=== PATIENT | female | born 1995 | race Caucasian/White ===

== ENCOUNTER 2020-03-24 13:51 | Emergency (ER) | payer OTHER, SELFPAY ==
[2020-03-24 16:21] VITALS: BP 139/66; PULSE 91; RESP 16; TEMP 36.6; O2SAT 99; BMI 30.7
--- NOTE | 2020-03-24 16:41 | PC.NURSE ---
also c/o waking at night w/nausea and vomiting over past couple days, last vomited approx. 1300 today in addition to +discoloration on left breast not visualized by this rn
--- NOTE | 2020-03-24 17:01 | ED.GENADULT ---
HPI - General Adult General Chief complaint: Skin/Abscess/Foreign Body Stated complaint: RASH VOMITING Time Seen by Provider: 03/24/20 14:21 Source: patient Mode of arrival: ambulatory Limitations: no limitations History of Present Illness HPI narrative: 25 y/o healthy female presenting with minor red, dry rash under both of her eyes and along her hairline for the last 3 days. It is not painful or itchy. She also reports vomiting for the last 2 days as well, last at 1 pm today. She states it is worse in the morning. She reports mild epigastric pain when vomiting, none as present. She reports she may be . Does not know her LMP. Urinating is slightly painful w/ hotness but she said this is baseline for her. She has no fevers. No diarrhea. No sick contacts. MD complaint: vomiting & rash Onset (ago): day(s) (3) Location: face and abdomen Radiation: non-radiation Severity: mild Quality: aching Pain Consistency: intermittent and now resolved Relieving factors: none Exacerbating factors: other (vomiting) Associated symptoms: loss of appetite, nausea/vomiting and rash Treatments prior to arrival: none Related Data Previous Rx's Medication Instructions Recorded cefuroxime axetil 250 mg PO BID 7 Days #14 tab 03/24/20 ondansetron HCl [Zofran] 4 mg PO Q8H PRN #10 tab 03/24/20 Allergies Allergy/AdvReac Type Severity Reaction Status Date / Time No Known Allergies Allergy Unverified 10/25/19 17:20 Review of Systems Review of Systems: Constitutional: No Fever, No Chills ENT/Mouth: No sore throat, No Rhinorrhea, No Swallowing Difficulty Eyes: No Eye Pain, No Swelling, No Redness Cardiovascular: No Chest Pain, No SOB, No Orthopnea, No Edema Respiratory: No Cough, No Sputum, No Wheezing, No dyspnea Gastrointestinal: + Nausea, + Vomiting, No Diarrhea, + abdominal Pain Genitourinary: + Dysuria, No Urinary Frequency, No Hematuria Musculoskeletal: No joint pain, No Myalgias Skin: + Skin Lesions, + rash Neuro: No Weakness, No Numbness, No Dizziness, No Headache Psych: No Anxiety/Panic, No Depression Heme/Lymph: No Bruising, No Lymphadenopathy Endocrine: No Polyuria, No Polydipsia PMFSH Past Medical History Attestation statement: The following information was validated with the patient. Medical History No known health problems Social History Social History Smoked in Last 30 Days: No Use of substances other than those prescribed or required for medical reasons: No Advance Directives: No Advance Directives Information Provided: Yes Physical Exam Vital Signs: Vital Signs: Last Vital Signs Temp 98 F 03/24/20 16:21 Pulse 91 03/24/20 16:21 Resp 16 03/24/20 16:21 BP 139/66 03/24/20 16:21 Pulse Ox 99 03/24/20 16:21 Body Mass Index 30.7 Appearance: Alert. Oriented X3. No acute distress. Eyes: Pupils equal, round and reactive to light. ENT: Pharynx normal. Neck: Normal inspection. Neck supple. CVS: Normal heart rate and rhythm. Pulses normal. Respiratory: No respiratory distress. Breath sounds normal. Abdomen: Soft and nontender. +BS x4 Skin: Skin warm and dry. Normal skin color. Normal skin turgor. minor slightly erythematous dry rash patch below bilateral eyes. along hairline inflammed hair follicle Extremities: No lower extremity edema. Neuro: Oriented X 3. No motor deficit. No sensory deficit. Course Course Course Narrative: 25 y/o female presenting with vomiting x3 days and minor facial rash. Rash is consistent with mild folliculitis and dry patches could be due to eczema. Will check Upreg and basic labs. She is not nauseated here and she has no abdominal pain or tenderness. Reevaluation(s) Reevaluation #1: Labs are unremarkable. Urine is negative. UA consistent with UTI. No CVA tenderness, doubt pyelonephritis. No fever or leukocytosis. Will treat with PO ceftin and Zofran. Stable for d/c home. Instructed to return if symptoms worsen. Medical Decision Making Lab Data Result diagrams: 03/24/20 17:04 03/24/20 17:04 Labs: Lab Results 03/24/20 03/24/20 03/24/20 Range/Units 17:04 17:04 17:04 WBC 10.0 (4.8-10.8) X10*3/uL RBC 4.34 (4.20-5.50) X10*6/uL Hgb 12.3 (12.0-16.0) g/dl Hct 38.0 (37-47) % MCV 87.6 (80-98) fL MCH 28.3 (27.0-33.0) pg MCHC 32.4 (31.0-35.0) g/dl RDW 13.5 (11.0-16.0) % Plt Count 233 (160-400) X10*3/uL MPV 10.6 (9.4-12.3) fL Immature Gran % (Auto) 0.3 (0.0-0.4) % Neut % (Auto) 75.6 H (45-73) % Lymph % (Auto) 16.2 L (20-40) % [place] % (Auto) 6.4 (2-11) % Eos % (Auto) 1.1 (0-4) % Baso % (Auto) 0.4 (0-2) % Lymph # (Auto) 1.6 (1.2-4.9) X10*3/uL [place] # (Auto) 0.6 (0.1-1.2) X10*3/uL Eos # (Auto) 0.1 (0.0-0.4) X10*3/uL Baso # (Auto) 0.0 (0.0-0.2) X10*3/uL Abs Immat Gran (auto) 0.03 (0.00-0.03) X10*3/uL Absolute Neuts (auto) 7.6 (2.0-8.3) X10*3/uL Absolute Nucleated RBC 0.000 (0.0-0.012) X10*3/uL Nucleated RBC % (auto) 0.0 (0.0-0.2) /100WBC Sodium 139 (135-145) mmol/L Potassium 3.6 (3.3-5.1) mmol/L Chloride 103 (96-108) mmol/L Carbon Dioxide 28 (22-29) mmol/L Anion Gap 12 (12-20) BUN 7 L (9-16) mg/dL Creatinine 0.69 (0.5-1.4) mg/dL Estim Creat Clear Calc 135.4 Estimated GFR > 60 Random Glucose 84 (60-115) mg/dL Calcium 8.8 (8.4-10.2) mg/dL Magnesium 2.4 (1.6-2.6) mg/dL Total Bilirubin 0.7 (0.0-1.0) mg/dL Direct Bilirubin 0.2 (0.0-0.5) mg/dL AST 16 (5-31) U/L ALT 14 (0-31) U/L Alkaline Phosphatase 99 (39-117) U/L Total Protein 7.6 (6.5-8.0) g/dL Albumin 4.4 (3.5-5.0) g/dL Urine Color YELLOW Urine Appearance CLOUDY Urine pH 6.0 (5.0-8.0) Ur Specific [place] >= 1.030 H (1.005-1.025) Urine Protein TRACE (NEG-TRACE) MG/DL Urine Glucose (UA) NEG (NEG) MG/DL Urine Ketones >=80 (NEG) MG/DL Urine Blood 1+ H (NEG) Urine Nitrite NEG (NEG) Ur Leukocyte Esterase 2+ H (NEG) Urine RBC 5-9 H (0) /HPF Urine WBC 15-29 H (0-4) /HPF Ur Squamous Epith Cells 2+ /LPF Amorphous Sediment 2+ /LPF Urine Bacteria 1+ /LPF Urine Mucus 3+ /LPF Urine Test NEGATIVE (NEGATIVE) Critical Care Time Critical Care Time Critical Care Time: No Discharge Plan Discharge Clinical Impression: UTI (urinary tract infection) Qualifiers: Urinary tract infection type: acute cystitis Hematuria presence: without hematuria Qualified Code(s): N30.00 - Acute cystitis without hematuria Vomiting Qualifiers: Vomiting type: unspecified Vomiting Intractability: non-intractable Nausea presence: with nausea Qualified Code(s): R11.2 - Nausea with vomiting, unspecified Patient Disposition: Home, Self-Care Instructions: Urinary Tract Infection in Women (ED), Acute Nausea and Vomiting (ED) Additional Instructions: Your test was negative today. Your lab workup was unremarkable. Your urine test showed signs of a urinary tract infection. Take the prescribed antibiotic as directed. Take the prescribed nausea medication as needed. Recommend topical hydrocortisone two times per day for 10 days to the rash. Follow up with your doctor this week. If you have worsening symptoms come back to the ER for further evaluation. Prescriptions: New ondansetron HCl [Zofran] 4 mg tablet 4 mg PO Q8H PRN (Reason: nausea and vomiting) Qty: 10 RF: 0 cefuroxime axetil 250 mg tablet 250 mg PO BID 7 Days Qty: 14 RF: 0 Interventions: ED Discharge Assessment Last Done: 03/24/20 18:23 Discharge Date/Time: 03/24/20 18:25
[2020-03-24 17:13] LABS: MANUAL DIFF FLAG NO
[2020-03-24 17:17] LABS: Basophils Percent Auto 0.4 % (0-2); Eosinophils Absolute Auto 0.1 X10*3/uL (0.0-0.4); Eosinophils Percent Auto 1.1 % (0-4); Hemoglobin 12.3 g/dl (12.0-16.0); Imm Gran Abs Auto 0.03 X10*3/uL (0.00-0.03); Imm Gran Pct Auto 0.3 % (0.0-0.4); Lymphocytes Absolute Auto 1.6 X10*3/uL (1.2-4.9); Lymphocytes Percent Auto 16.2 % (20-40); Mean Corpuscular HGB Conc 32.4 g/dl (31.0-35.0); Mean Corpuscular Hemoglobin 28.3 pg (27.0-33.0); Mean Corpuscular Volume 87.6 fL (80-98); Mean Platelet Volume 10.6 fL (9.4-12.3); Monocytes Absolute Auto 0.6 X10*3/uL (0.1-1.2); Monocytes Percent Auto 6.4 % (2-11); Neutrophils Absolute Auto 7.6 X10*3/uL (2.0-8.3); Neutrophils Percent Auto 75.6 % (45-73); Platelet Count 233 X10*3/uL (160-400); Red Blood Count 4.34 X10*6/uL (4.20-5.50); Red Cell Distribution Width 13.5 % (11.0-16.0)
[2020-03-24 17:18] LABS: Glucose Urine UA NEG (NEG); Leukocyte Esterase Urine 2+ (NEG); Nitrite Urine NEG (NEG); Specific Gravity - Urine >= 1.030 (1.005-1.025); UACC Culture Trigger YES; Urine Blood 1+ (NEG); Urine Ketones >=80 MG/DL (NEG); Urine Protein TRACE MG/DL (NEG-TRACE)
[2020-03-24 17:23] LABS: Appearance Urine CLOUDY; Color Urine YELLOW
[2020-03-24 17:27] LABS: UPreg QC Valid YES; Urine Pregnancy NEGATIVE (NEGATIVE)
[2020-03-24 17:42] LABS: Amorphous Sediment Urine 2+ /LPF; Squamous Epithelial Cell Urine 2+ /LPF
[2020-03-24 17:43] LABS: Bacteria Urine 1+ /LPF; Mucus Urine 3+ /LPF
[2020-03-24 17:53] LABS: Alanine Aminotransferase 14 U/L (0-31); Albumin Level 4.4 g/dL (3.5-5.0); Alkaline Phosphatase 99 U/L (39-117); Anion Gap 12 (12-20); Aspartate Amino Transferase 16 U/L (5-31); Bilirubin Direct 0.2 mg/dL (0.0-0.5); Bilirubin Total 0.7 mg/dL (0.0-1.0); Blood Urea Nitrogen 7 mg/dL (9-16); Calcium 8.8 mg/dL (8.4-10.2); Carbon Dioxide 28 mmol/L (22-29); Chloride 103 mmol/L (96-108); Creatinine Clr Calc Pharmacy 135.4; Estimated Glomerular Filt Rate > 60; Glucose Random 84 mg/dL (60-115); Magnesium 2.4 mg/dL (1.6-2.6); Potassium 3.6 mmol/L (3.3-5.1); Sodium 139 mmol/L (135-145); Total Protein 7.6 g/dL (6.5-8.0)
== END 2020-03-24 18:25 | disposition home or self-care (01) ==
PROVIDERS: Physician Assistant; Emergency Provider Internal Medicine; PCP Internal Medicine
DX: N30.00 Acute cystitis without hematuria (principal); R11.2 Nausea with vomiting, unspecified
CPT/HCPCS: 36415; 80048; 80076; 81001; 81003; 81025; 83735; 85025; 87086; 99283; 99284

== ENCOUNTER 2020-08-26 14:11 | Emergency (ER) | payer OTHER, SELFPAY ==
[2020-08-26 14:24] VITALS: BP 102/61; PULSE 76; RESP 18; TEMP 36.8; O2SAT 98; BMI 30.1
--- NOTE | 2020-08-26 15:16 | ED.GENADULT ---
HPI - General Adult General Chief complaint: General Medical Stated complaint: L SIDE HEAD SWOLLEN FUNNY SENSATION Time Seen by Provider: 08/26/20 14:53 Source: patient Mode of arrival: ambulatory History of Present Illness HPI narrative: 25-year-old female with no significant past medical history presenting to the ED complaining of left side of head swelling and pruritus since yesterday dying her hair. Reports improvement to area today. Denies known allergens, trauma/fall or injury, headache/pain, rash, drainage, fever Onset (ago): day(s) Related Data Previous Rx's Medication Instructions Recorded cefuroxime axetil 250 mg PO BID 7 Days #14 tab 03/24/20 ondansetron HCl [Zofran] 4 mg PO Q8H PRN #10 tab 03/24/20 Allergies Allergy/AdvReac Type Severity Reaction Status Date / Time No Known Allergies Allergy Verified 08/26/20 14:24 Review of Systems Review of Systems: Constitutional: No Fever, No Chills ENT/Mouth: No Ear Pain, No sore throat, No Rhinorrhea Gastrointestinal: No Nausea, No Vomiting Musculoskeletal: No joint pain, No Myalgias, No Joint Swelling Skin: No Skin Lesions, No rash, + lump to left side of head Neuro: No Weakness, No Numbness, No Paresthesias, no headache Yes all other systems are reviewed and are negative [facility] Past Medical History Attestation statement: The following information was validated with the patient. Medical History No known health problems Social History Social History Advance Directives: No Advance Directives Information Provided: No Patient : No Physical Exam Vital Signs: Vital Signs: Last Vital Signs Temp 98.3 F 08/26/20 14:24 Pulse 76 08/26/20 14:24 Resp 18 08/26/20 14:24 BP 102/61 08/26/20 14:24 Pulse Ox 98 08/26/20 14:24 Body Mass Index 30.1 Const: General: cooperative, healthy appearing, no acute distress, well developed, alert and awake Orientation/consciousness: patient oriented x3 Limitations: no limitations HENMT: Other: No appreciable deformity. No appreciable scalp swelling. No rash/erythema, no fluctuance/induration or cellulitis Head: Yes normal to inspection, Yes atraumatic, No Poon's sign, No hematoma, No palpable skull fracture, No raccoon eyes and No scalp tenderness Ears: hearing grossly normal bilaterally General nose exam: Normal external nose present Face and sinus: Yes normal facial exam Eyes: General: appearance normal, both eyes and all related structures EOM: EOMs intact bilaterally Neck: Neck: Yes normal visual inspection and Yes no meningeal signs Resp: Effort & Inspection: normal respiratory effort and no respiratory distress Cardio: Rate: regular rate Skin: General skin exam: no rashes or lesions noted Rashes: no rashes Wounds: no wounds Hair: normal Neuro: General: patient oriented x3 and no meningeal signs Gait exam (Neuro): Normal gait present Extrem: General: Yes normal to inspection Medical Decision Making MDM Narrative Medical decision making narrative: 25-year-old female with no significant past medical history presenting to the ED complaining of left side of head swelling and pruritus since yesterday dying her hair. On exam vital signs stable, NAD, physical exam as above, no appreciable deformity. Discussed with patient possible allergic reaction to hair dye she used yesterday, to avoid this allergen, she verbalized understanding Discharge Plan Discharge Clinical Impression: Head lump Patient Disposition: Home, Self-Care Instructions: Normal Exam (ED) Additional Instructions: There is no appreciable deformity, rash, or infection to your head Avoid that specific hair dye use, you could be allergic to it If her symptoms persist or worsen, area grows, area begins to get infected, there is drainage, you develop a rash or fever return to the ED Prescriptions: No Action ondansetron HCl [Zofran] 4 mg tablet 4 mg PO Q8H PRN (Reason: nausea and vomiting) Qty: 10 RF: 0 cefuroxime axetil 250 mg tablet 250 mg PO BID 7 Days Qty: 14 RF: 0 Referrals: Po,Domitila Henry MD [Primary Care Provider] - 2 days
== END 2020-08-26 16:00 | disposition home or self-care (01) ==
PROVIDERS: Emergency Provider Emergency Medicine; PCP Internal Medicine
DX: R22.0 Localized swelling, mass and lump, head (principal)
CPT/HCPCS: 99282; 99283

== ENCOUNTER 2020-12-27 08:23 | Emergency (ER) | payer OTHER, SELFPAY ==
[2020-12-27 08:54] VITALS: BP 102/53; PULSE 77; RESP 18; TEMP 36.5; O2SAT 100; BMI 24.1
[2020-12-27 09:20] LABS: COVID-19 Test Negative (Negative)
--- NOTE | 2020-12-27 09:52 | ECG_ITS ---
Test Reason : DIZZINESS Blood Pressure : / mmHG Vent. Rate : 067 BPM Atrial Rate : 067 BPM P-R Int : 158 ms QRS Dur : 090 ms QT Int : 408 ms P-R-T Axes : 058 073 050 degrees QTc Int : 431 ms Normal sinus rhythm RSR' or QR pattern in V1 suggests right ventricular conduction delay Otherwise normal ECG No significant changes seen Referred By: Jeanine Sauer Electronically Signed By:DARIUSZ AGUILAR MD
--- NOTE | 2020-12-27 09:57 | ED_ITS ---
HPI - Dizziness General Chief Complaint: Dizziness Stated Complaint: dizziness Time Seen by Provider: 12/27/20 09:41 Source: patient Mode of arrival: ambulatory Limitations: no limitations History of Present Illness HPI Narrative: 25-year-old female previously healthy here with complaints of feeling lightheaded and dizzy for the last 3 days. Patient tells me that she has been working a lot and not eating frequently throughout the day. She also does not feel like she is hydrating appropriately. She feels lightheaded and dizzy when she is moving and not at rest. She denies any URI symptoms, ear pain or drainage, headaches, chest pain or shortness of breath. Related Data Previous Rx's Medication Instructions Recorded cefuroxime axetil 250 mg tablet 250 mg PO BID 7 Days #14 tab 03/24/20 ondansetron HCl 4 mg tablet 4 mg PO Q8H PRN #10 tab 03/24/20 (Zofran) hydrocortisone 2.5 % topical cream 1 appl TOPICAL BID PRN #20 g 09/10/20 nitrofurantoin 100 mg PO Q12H 5 Days #10 cap 12/27/20 monohydrate/macrocrystals 100 mg capsule (Macrobid) Allergies Allergy/AdvReac Type Severity Reaction Status Date / Time No Known Allergies Allergy Verified 12/27/20 08:54 Review of Systems Review of Systems: Yes all other systems are reviewed and are negative Constitutional: Constitutional: Reports no additional constitutional complaints, Denies body ache(s), Denies chills, Denies fever(s), Denies headache(s) and Denies weakness Eyes: Eyes: Reports no additional eye complaints and Denies change in vision ENT: Reports system reviewed and no additional complaints, except as documented, Reports dizziness, Denies headache(s), Denies nasal congestion, Denies nasal discharge and Denies neck pain Cardiovascular: Cardiovascular: Reports no additional cardiovascular complaints, Denies chest pain, Denies leg edema and Denies dyspnea Respiratory: Respiratory: Reports no additional respiratory complaints, Denies cough and Denies dyspnea Gastrointestinal: Gastrointestinal: Reports no additional gastrointestinal complaints, Denies abdominal pain, Denies diarrhea, Denies nausea and Denies vomiting Genitourinary: Genitourinary: Reports no additional female genitourinary c omplaints and Denies urinary incontinence Musculoskeletal: Musculoskeletal: Reports no additional musculoskeletal complaints, Denies back pain, Denies arthralgias, Denies joint swelling, Denies neck pain, Denies numbness and Denies tingling Integumentary/Breasts: Skin/Breast: Reports system reviewed and no additional complaints, except as docu and Denies rash Neurologic: Reports system reviewed and no additional complaints, except as documented, Denies Abnormal speech present, Reports dizziness, Denies headache(s), Denies numbness, Denies tingling and Denies weakness PMFSH Past Medical History Attestation statement: The following information was validated with the patient. Source: old records reviewed and nursing notes reviewed Medical History Allergic rhinitis Carpal tunnel syndrome No known health problems Obesity (BMI 30-39.9) Peripheral neuropathy Reactive airway disease Surgical History No history of previous surgery Family History Family History Mother No problems noted. Father No problems noted. Social History Social History Housing: Apartment Alcohol intake: never Patient Tobacco Use Status: Never used Tobacco e-Cigarette/Vaping Use: Never Used Second Hand Smoke Exposure: No Use of substances other than those prescribed or required for medical reasons: No Advance Directives: No Advance Directives Information Provided: Yes Patient : No service: No Current occupational status: unemployed Physical Exam Vital Signs: Vital Signs: Last Vital Signs Temp 97.7 F 12/27/20 08:54 Pulse 72 12/27/20 11:12 Resp 18 12/27/20 08:54 BP 103/60 12/27/20 11:12 Pulse Ox 100 12/27/20 08:54 Body Mass Index 24.1 Const: General: cooperative, healthy appearing, comfortable and no acute distress Orientation/consciousness: patient oriented x3 Limitations: no limitations HENMT: Head: Yes normal to inspection Ears: hearing grossly normal bilaterally and TM's normal bilaterally General nose exam: Normal external nose present Face and sinus: Yes normal facial exam Mouth: Normal oral and palatal mucosa present Throat: Yes posterior oropharynx normal, Yes tonsils normal and Yes uvula midline Eyes: General: appearance normal, both eyes and all related structures Pupils: Equal, round and reactive pupils present Neck: Neck: Yes normal visual inspection, Yes full ROM, Yes no lymphadenopathy and Yes no meningeal signs Chest: Chest palpation & inspection: normal inspection of the chest Resp: Effort & Inspection: normal respiratory effort Auscultation: clear to auscultation bilaterally Cardio: Rate: regular rate Rhythm: regular rhythm Peripheral pulses: Peripheral pulses 2+ throughout GI: Inspection: Yes normal to inspection Palpation (GI): Soft to palpation and nontender Auscultation: normal bowel sounds Back/Spine/Pelvis: Thoracic/Lumbar Spine: thoracic and lumbar spine normal to inspection Skin: General skin exam: no rashes or lesions noted Neuro: General: patient oriented x3, no meningeal signs, no focal motor deficits and normal sensation to monofilament Cranial nerves: Yes CN's II-XII intact bilaterally, Yes Equal, round and reactive pupils present, Yes Bilaterally intact EOM present, Yes Nystagmus not present and Yes Midline tongue present Cognition (Neuro): normal cognition Speech: No Abnormal speech present Gait exam (Neuro): Normal gait present Motor exam (neuro): 5/5 motor strength present throughout Sensory Exam: Normal double simultaneous stimulation for sensation Coordination: [id number] test normal, [id number] test normal and tandem gait normal Extrem: General: Yes normal to inspection, Yes no pedal edema and Yes no calf tenderness Course Course Course Narrative: 25-year-old female here with feeling lightheaded and dizzy with position changes for the last 3 days. Exam is benign. Normal neurological exam. Nontoxic appearing. Will check labs, EKG, orthostatics vital signs and urine 1245-labs are unremarkable. UA is consistent with the UTI. Urine is negative. EKG shows show some T-wave inversion but troponin is negative with no for reports of chest pain so less likely ACS. Orthostatics were positive so the patient received 2 L of normal saline with improvement of symptoms. Reviewed worrisome signs and symptoms of when to return to the emergency department. Comfortable discharge home. [facility] - Dizziness Medical Records Attestation: I reviewed the patient's medical records. Lab Data Attestation: I reviewed the patient's lab results. Result diagrams: 12/27/20 10:05 12/27/20 10:05 Labs: Lab Results 12/27/20 12/27/20 12/27/20 Range/Units 09:01 10:05 10:05 WBC 7.1 (4.8-10.8) X10*3/uL RBC 3.96 L (4.20-5.50) X10*6/uL Hgb 11.5 L (12.0-16.0) g/dl Hct 36.1 L (37.0-47.0) % MCV 91.2 (80.0-98.0) fL MCH 29.0 (27.0-33.0) pg MCHC 31.9 (31.0-35.0) g/dl RDW 14.3 (11.0-16.0) % Plt Count 183 (160-400) X10*3/uL MPV 12.2 (9.4-12.3) fL Immature Gran % (Auto) 0.3 (0.0-0.4) % Neut % (Auto) 64.0 (45-73) % Lymph % (Auto) 22.9 (20-40) % [place] % (Auto) 7.4 (2-11) % Eos % (Auto) 4.8 H (0-4) % Baso % (Auto) 0.6 (0-2) % Lymph # (Auto) 1.6 (1.2-4.9) X10*3/uL [place] # (Auto) 0.5 (0.1-1.2) X10*3/uL Eos # (Auto) 0.3 (0.0-0.4) X10*3/uL Baso # (Auto) 0.0 (0.0-0.2) X10*3/uL Abs Immat Gran (auto) 0.02 (0.00-0.03) X10*3/uL Absolute Neuts (auto) 4.6 (2.0-8.3) x10*3/uL Absolute Nucleated RBC 0.000 (0.0-0.012) X10*3/uL Nucleated RBC % (auto) 0.0 (0.0-0.2) /100WBC Sodium 136 (135-145) mmol/L Potassium 3.7 (3.3-5.1) mmol/L Chloride 106 (96-108) mmol/L Carbon Dioxide 23 (22-29) mmol/L Anion Gap 11 L (12-20) BUN 8 L (9-16) mg/dL Creatinine 0.66 (0.5-1.4) mg/dL Estim Creat Clear Calc 115.2 Estimated GFR > 60 Random Glucose 81 (60-115) mg/dL Calcium 8.7 (8.4-10.2) mg/dL Magnesium 2.1 (1.6-2.6) mg/dL Troponin I High Sens (<3.5-17.0) ng/L Urine Color Urine Appearance Urine pH (5.0-8.0) Ur Specific [place] (1.005-1.025) Urine Protein (NEG-TRACE) MG/DL Urine Glucose (UA) (NEG) MG/DL Urine Ketones (NEG) MG/DL Urine Blood (NEG) Urine Nitrite (NEG) Ur Leukocyte Esterase (NEG) Urine RBC (0) /HPF Urine WBC (0-4) /HPF Ur Squamous Epith Cells /LPF Urine Bacteria /LPF Urine Mucus /LPF Urine Test (NEGATIVE) COVID-19 (OLI) Negative (Negative) COVID-19 Clin Com See Note 12/27/20 12/27/20 12/27/20 Range/Units 10:05 10:05 10:05 WBC (4.8-10.8) X10*3/uL RBC (4.20-5.50) X10*6/uL Hgb (12.0-16.0) g/dl Hct (37.0-47.0) % MCV (80.0-98.0) fL MCH (27.0-33.0) pg MCHC (31.0-35.0) g/dl RDW (11.0-16.0) % Plt Count (160-400) X10*3/uL MPV (9.4-12.3) fL Immature Gran % (Auto) (0.0-0.4) % Neut % (Auto) (45-73) % Lymph % (Auto) (20-40) % [place] % (Auto) (2-11) % Eos % (Auto) (0-4) % Baso % (Auto) (0-2) % Lymph # (Auto) (1.2-4.9) X10*3/uL [place] # (Auto) (0.1-1.2) X10*3/uL Eos # (Auto) (0.0-0.4) X10*3/uL Baso # (Auto) (0.0-0.2) X10*3/uL Abs Immat Gran (auto) (0.00-0.03) X10*3/uL Absolute Neuts (auto) (2.0-8.3) x10*3/uL Absolute Nucleated RBC (0.0-0.012) X10*3/uL Nucleated RBC % (auto) (0.0-0.2) /100WBC Sodium (135-145) mmol/L Potassium (3.3-5.1) mmol/L Chloride (96-108) mmol/L Carbon Dioxide (22-29) mmol/L Anion Gap (12-20) BUN (9-16) mg/dL Creatinine (0.5-1.4) mg/dL Estim Creat Clear Calc Estimated GFR Random Glucose (60-115) mg/dL Calcium (8.4-10.2) mg/dL Magnesium (1.6-2.6) mg/dL Troponin I High Sens < 3.5 (<3.5-17.0) ng/L Urine Color YELLOW Urine Appearance HAZY Urine pH 6.0 (5.0-8.0) Ur Specific [place] >= 1.030 H (1.005-1.025) Urine Protein NEG (NEG-TRACE) MG/DL Urine Glucose (UA) NEG (NEG) MG/DL Urine Ketones NEG (NEG) MG/DL Urine Blood NEG (NEG) Urine Nitrite NEG (NEG) Ur Leukocyte Esterase 2+ H (NEG) Urine RBC 0 (0) /HPF Urine WBC 5-9 H (0-4) /HPF Ur Squamous Epith Cells 2+ /LPF Urine Bacteria TRACE /LPF Urine Mucus 1+ /LPF Urine Test NEGATIVE (NEGATIVE) COVID-19 (OLI) (Negative) COVID-19 Clin Com ECG Data Attestation: I personally reviewed and interpreted this ECG as follows: ECG interpretation date: 12/27/20 ECG interpretation time: 09:59 Interpretation: Normal sinus rhythm with a rate of 67, normal [place], normal QRS, normal QT T-wave changes in leads V1 and V2 Discharge Plan Discharge Clinical Impression: UTI (urinary tract infection), Orthostatic hypotension Patient Disposition: Home, Self-Care Instructions: Urinary Tract Infection in Women (ED), Dizziness (ED) Additional Instructions: Change positions slowly Eat small frequent meals throughout the day. Drinks fluid. Eat a diet with salt Prescriptions: New nitrofurantoin monohyd/m-cryst [Macrobid] 100 mg capsule 100 mg PO Q12H 5 Days Qty: 10 RF: 0 No Action ondansetron HCl [Zofran] 4 mg tablet 4 mg PO Q8H PRN (Reason: nausea and vomiting) Qty: 10 RF: 0 cefuroxime axetil 250 mg tablet 250 mg PO BID 7 Days Qty: 14 RF: 0 hydrocortisone 2.5 % cream 1 appl topical BID PRN (Reason: skin irritation) Qty: 20 RF: 0 Referrals: Po,Domitila Henry MD [Primary Care Provider] - 2 days Interventions: ED Discharge Assessment Last Done: 12/27/20 13:32 Discharge Date/Time: 12/27/20 13:40
[2020-12-27 10:10] LABS: Appearance Urine HAZY; Color Urine YELLOW; Glucose Urine UA NEG (NEG); Leukocyte Esterase Urine 2+ (NEG); Nitrite Urine NEG (NEG); Specific Gravity - Urine >= 1.030 (1.005-1.025); UACC Culture Trigger YES; Urine Blood NEG (NEG); Urine Ketones NEG (NEG); Urine Protein NEG (NEG-TRACE)
[2020-12-27 10:11] LABS: UPreg QC Valid YES; Urine Pregnancy NEGATIVE (NEGATIVE)
[2020-12-27 10:18] LABS: Bacteria Urine TRACE /LPF; Mucus Urine 1+ /LPF; RBC Urine 0 /HPF (0); Squamous Epithelial Cell Urine 2+ /LPF
[2020-12-27 10:21] LABS: MANUAL DIFF FLAG NO
[2020-12-27 10:55] LABS: Basophils Percent Auto 0.6 % (0-2); Eosinophils Absolute Auto 0.3 X10*3/uL (0.0-0.4); Eosinophils Percent Auto 4.8 % (0-4); Hematocrit 36.1 % (37.0-47.0); Hemoglobin 11.5 g/dl (12.0-16.0); Imm Gran Abs Auto 0.02 X10*3/uL (0.00-0.03); Imm Gran Pct Auto 0.3 % (0.0-0.4); Lymphocytes Absolute Auto 1.6 X10*3/uL (1.2-4.9); Lymphocytes Percent Auto 22.9 % (20-40); Mean Corpuscular HGB Conc 31.9 g/dl (31.0-35.0); Mean Corpuscular Volume 91.2 fL (80.0-98.0); Mean Platelet Volume 12.2 fL (9.4-12.3); Monocytes Absolute Auto 0.5 X10*3/uL (0.1-1.2); Monocytes Percent Auto 7.4 % (2-11); Neutrophils Absolute Auto 4.6 x10*3/uL (2.0-8.3); Platelet Count 183 X10*3/uL (160-400); Red Blood Count 3.96 X10*6/uL (4.20-5.50); Red Cell Distribution Width 14.3 % (11.0-16.0); White Blood Count 7.1 X10*3/uL (4.8-10.8)
[2020-12-27 11:05] LABS: Anion Gap 11 (12-20); Blood Urea Nitrogen 8 mg/dL (9-16); Calcium 8.7 mg/dL (8.4-10.2); Carbon Dioxide 23 mmol/L (22-29); Chloride 106 mmol/L (96-108); Creatinine Clr Calc Pharmacy 115.2; Estimated Glomerular Filt Rate > 60; Glucose Random 81 mg/dL (60-115); Magnesium 2.1 mg/dL (1.6-2.6); Potassium 3.7 mmol/L (3.3-5.1); Sodium 136 mmol/L (135-145)
[2020-12-27 11:10] VITALS: BP 90/43; PULSE 66
[2020-12-27 11:11] VITALS: BP 93/56; PULSE 78
[2020-12-27 11:12] VITALS: BP 103/60; PULSE 72
[2020-12-27 11:40] LABS: Troponin-I High Sensitivity < 3.5 ng/L (<3.5-17.0)
[2020-12-27] MEDS: 0.9 % Sodium Chloride 2,000 ML 999 ML IV (12:07)
== END 2020-12-27 13:40 | disposition home or self-care (01) ==
PROVIDERS: Nurse Practitioner Family; Emergency Provider Emergency Medicine Emergency Medical Services; PCP Internal Medicine
DX: N39.0 Urinary tract infection, site not specified (principal); I95.1 Orthostatic hypotension; R42 Dizziness and giddiness; Z20.822 Contact with and (suspected) exposure to COVID-19
CPT/HCPCS: 36415; 80048; 81001; 81025; 83735; 84484; 85025; 87086; 87635; 93005; 96360; 96361; 99284

== ENCOUNTER 2022-01-24 22:01 | Emergency (ER) | payer OTHER, SELFPAY ==
[2022-01-24 22:13] VITALS: BP 101/64; PULSE 70; RESP 18; TEMP 36.4; O2SAT 100; BMI 25.0
--- NOTE | 2022-01-24 22:44 | ED.GENADULT ---
HPI - General Adult General Chief complaint: Headache Stated complaint: migraines, and lump on neck Time Seen by Provider: 01/24/22 22:30 Source: patient Limitations: no limitations History of Present Illness HPI narrative: This is a 26-year-old female with a history of migraines, who states that she has had worsened headaches over the last month. Especially since 4 days ago, the patient has had a frontal headache with pain also in her nose. The patient saw her primary care physician 3 days ago and was prescribed a medicine, which she believes is sumatriptan, and which she has been taking but without much relief. Patient denies any fever. The light bothers her eyes a little bit. She has had nausea but no vomiting. She had also noticed about a week ago that she had some pain in the right side of her neck, and her primary care physician stated might have an ultrasound done as an outpatient. Patient denies any visual changes. She denies any speech difficulty. Denies any numbness or weakness to her face, arms, legs. Related Data Previous Rx's Medication Instructions Recorded ondansetron HCl 4 mg tablet 4 mg PO Q8H PRN nausea and 03/24/20 (Zofran) vomiting #10 tabs hydrocortisone 2.5 % topical cream 1 appl topical BID PRN skin 09/10/20 irritation #20 grams meclizine 25 mg tablet 25 mg PO BID PRN dizziness #20 tabs 01/20/22 sumatriptan succinate 25 mg tablet See Rx Instructions PO .COMPLEX 01/20/22 PRN migraine headache #30 tabs Allergies Allergy/AdvReac Type Severity Reaction Status Date / Time No Known Allergies Allergy Verified 01/20/22 08:29 Review of Systems Review of Systems: As per HPI Constitutional: Constitutional: Denies fever(s) Eyes: Eyes: Reports no additional eye complaints ENT: Reports system reviewed and no additional complaints, except as documented Cardiovascular: Cardiovascular: Reports no additional cardiovascular complaints Respiratory: Respiratory: Reports no additional respiratory complaints Gastrointestinal: Gastrointestinal: Reports nausea and Denies vomiting [facility] Past Medical History Medical History (Updated 01/25/22 @ 00:09 by Lorenzo Simmons MD) Allergic rhinitis Carpal tunnel syndrome Constipation Dizziness Mass of right side of neck Migraine No known health problems Obesity (BMI 30-39.9) Peripheral neuropathy Reactive airway disease Surgical History No history of previous surgery Family History Family History Mother No problems noted. Father No problems noted. Social History Social History Housing: Apartment Alcohol intake: never Patient Tobacco Use Status: Never used Tobacco Smoked in Last 30 Days: No e-Cigarette/Vaping Use: Never Used Second Hand Smoke Exposure: No Use of substances other than those prescribed or required for medical reasons: Yes Substance Use Type: Marijuana Advance Directives: No Advance Directives Information Provided: No service: No Current occupational status: unemployed Cognitive needs: No Hearing needs: No Vision needs: No Physical Exam ED Vital Signs: Vital Signs - 24 hr 01/24/22 22:13 Temperature 97.5 F Pulse Rate 70 Respiratory Rate 18 Blood Pressure 101/64 Pulse Oximetry 100 Oxygen Delivery Method Room Air BMI result Body Mass Index 25.0 Const General: no acute distress Orientation/consciousness: patient oriented x3 HENMT Head: Yes normal to inspection General nose exam: Normal external nose present Mouth: moist mucous membranes Throat: Yes posterior oropharynx normal, Yes tonsils normal and Yes uvula midline Eyes Eyelids: Yes eyelids normal Conjunctivae: conjunctivae normal Pupils: Equal, round and reactive pupils present Neck Neck: Yes supple and Yes other (No cervical adenopathy or neck mass) Resp Effort & Inspection: normal respiratory effort Auscultation: clear to auscultation bilaterally Cardio Rate: regular rate Rhythm: regular rhythm Heart sounds: S1 normal heart sound present, S2 normal heart sound present, no gallops, no murmurs and no rubs GI Inspection: No distended Palpation (GI): Soft to palpation and nontender Auscultation: normal bowel sounds Skin General skin exam: other (Warm and dry) Neuro General: patient oriented x3 and CN's II-XI intact bilaterally Cranial nerves: Yes Equal, round and reactive pupils present Extrem General: Yes no pedal edema Psych Affect: normal affect Attitude: cooperative Medications Administered Discontinued Medications Generic Name Dose Route Start Last Admin Trade Name Freq PRN Reason Stop Dose Admin Ketorolac Tromethamine 30 mg 01/24/22 22:43 01/24/22 22:54 Ketorolac Tromethamine 30 Mg/Ml Vial IM 01/24/22 22:44 30 mg ONCE ONE Administration Metoclopramide HCl 10 mg 01/24/22 22:43 01/24/22 22:54 Metoclopramide Hcl 10 Mg/2 Ml Vial IM 01/24/22 22:44 10 mg ONCE ONE Administration Medical Decision Making Medical Decision Making [facility] Narrative: Patient was treated with Toradol, Reglan, and had appearing improvement in her symptoms. The patient eloped prior to my being able to re-evaluate the patient. Discharge Plan Discharge Clinical Impression: Migraine Patient Disposition: Elopement Prescriptions: No Action ondansetron HCl [Zofran] 4 mg tablet 4 mg PO Q8H PRN (Reason: nausea and vomiting) Qty: 10 0RF hydrocortisone 2.5 % cream 1 appl topical BID PRN (Reason: skin irritation) Qty: 20 0RF meclizine 25 mg tablet 25 mg PO BID PRN (Reason: dizziness) Qty: 20 0RF sumatriptan succinate 25 mg tablet See Rx Instructions PO .COMPLEX PRN (Reason: migraine headache) Qty: 30 0RF Rx Instructions: take 1 tab at onset of headache; if no relief may repeat 1 tab after at least 2 hrs; max = 4 tabs/24 hr orally PRN;
[2022-01-24] MEDS: Metoclopramide HCl 10 MG/2 ML VIAL IM (22:54)
[2022-01-24] MEDS: Ketorolac Tromethamine 30 MG/ML VIAL IM (22:54)
== END 2022-01-25 05:40 | disposition left against medical advice (07) ==
PROVIDERS: Emergency Provider Emergency Medicine; PCP Internal Medicine
DX: G43.909 Migraine, unspecified, not intractable, without status migrainosus (principal); R11.0 Nausea; Z79.899 Other long term (current) drug therapy
CPT/HCPCS: 96372; 99283; 99284; J1885; J2765

== ENCOUNTER 2022-01-31 23:27 | Emergency (ER) | payer OTHER, SELFPAY ==
[2022-01-31 23:31] VITALS: BP 117/74; PULSE 79; RESP 16; TEMP 36.6; O2SAT 99; BMI 25.0
[2022-02-01 00:02] LABS: Strep A Nucleic Acid Negative (Negative)
[2022-02-01 00:03] LABS: COVID-19 Test Negative (Negative); IDNOW Serial# BCCEAD1C
[2022-02-01 00:06] LABS: IDNOW Serial# 16C4AD1C; Influenza A Negative (Negative); Influenza B2 Negative (Negative)
--- NOTE | 2022-02-01 00:21 | ED.GENADULT ---
HPI - General Adult General Chief complaint: General Medical Stated complaint: hurts to swallow Time Seen by Provider: 02/01/22 00:16 Source: patient Mode of arrival: ambulatory Limitations: no limitations History of Present Illness HPI narrative: Patient comes to the emergency room complaining of couple of days with pain swallowing. Patient states that she is already on antibiotics, amoxicillin for a tooth infection. Patient complaining of a lump on the right side of the neck. Patient denies fever chills, no neck rigidity or trouble moving the neck Related Data Previous Rx's Medication Instructions Recorded ondansetron HCl 4 mg tablet 4 mg PO Q8H PRN nausea and 03/24/20 (Zofran) vomiting #10 tabs hydrocortisone 2.5 % topical cream 1 appl topical BID PRN skin 09/10/20 irritation #20 grams meclizine 25 mg tablet 25 mg PO BID PRN dizziness #20 tabs 01/20/22 sumatriptan succinate 25 mg tablet See Rx Instructions PO .COMPLEX 01/20/22 PRN migraine headache #30 tabs Allergies Allergy/AdvReac Type Severity Reaction Status Date / Time No Known Allergies Allergy Verified 01/31/22 23:37 Review of Systems Review of Systems: Constitutional : No Weight loss, No Fever, No Chills, No Night Sweats, No Fatigue, No Malaise ENT/Mouth : No Hearing loss, No Ear Pain, No Nasal Congestion, No Sinus Pain, No Hoarseness, complaining of mild sore throat, No Rhinorrhea, No Swallowing Difficulty, complaining of a small lump on the right side of the neck Eyes: No Eye Pain, No Swelling, No Redness, No Foreign Body, No Discharge, No Vision Changes Cardiovascular : No Chest Pain, No SOB, No Dyspnea on Exertion, No Orthopnea, No Edema, No Palpitations Respiratory : No Cough, No Sputum, No Wheezing, No Smoke Exposure, No Dyspnea Gastrointestinal : No Nausea, No Vomiting, No Diarrhea, No Constipation, No abdominal Pain, No Hematochezia, No Melena Genitourinary : no irregular bleeding, No Dysuria, No Urinary Frequency, No Hematuria, No Urinary Incontinence, No Urgency, No Flank Pain, No Urinary Flow Changes, No Hesitancy Musculoskeletal : No joint pain, No Myalgias, No Joint Swelling Skin : No Skin Lesions, No rash Neuro : No Weakness, No Numbness, No Paresthesias, No Loss of Consciousness, No Dizziness, No Headache Psych : No Anxiety/Panic, No Depression, No SI/HI/AH/VH, No Social Issues, Heme/Lymph: No Bruising, No Bleeding,No Lymphadenopathy Endocrine : No Polyuria, No Polydipsia, No Temperature Intolerance [facility] Past Medical History Medical History Allergic rhinitis Carpal tunnel syndrome Constipation Dizziness Mass of right side of neck Migraine No known health problems Obesity (BMI 30-39.9) Peripheral neuropathy Reactive airway disease Surgical History No history of previous surgery Family History Family History Mother No problems noted. Father No problems noted. Social History Social History Housing: Apartment Alcohol intake: never Patient Tobacco Use Status: Never used Tobacco e-Cigarette/Vaping Use: Never Used Second Hand Smoke Exposure: No Substance Use Type: Marijuana Advance Directives: No Advance Directives Information Provided: Yes service: No Current occupational status: unemployed Cognitive needs: No Hearing needs: No Vision needs: No Physical Exam ED Vital Signs: Vital Signs - 24 hr 01/31/22 23:31 Temperature 97.8 F Pulse Rate 79 Respiratory Rate 16 Blood Pressure 117/74 Pulse Oximetry 99 Oxygen Delivery Method Room Air BMI result Body Mass Index 25.0 Const Other: Appearance: Alert. Oriented X3. No acute distress. Well appearing Eyes: Pupils equal, round and reactive to light. ENT: Pharynx normal. Small petechia a, 4-5 petechiae noted anterior to the uvula, no swelling Neck: Normal inspection. Neck supple. No lymph nodes noted. No crepitus, normal range of motion, no pain with movement. Palpable lymph node to the right posterior side of the neck CVS: Normal heart rate and rhythm. Pulses normal. Normal S1 and S2 Respiratory: No respiratory distress. Breath sounds normal. No Wheezing. No rales Abdomen: Soft and nontender. No rigidity. No distention. Skin: Skin warm and dry. Normal skin color. Normal skin turgor. Extremities: No lower extremity edema. No Lacerations. No Rash Neuro: Oriented X 3. No motor deficit. No sensory deficit. Moving all extremities. No slurred speech. CN 2 through 12 grossly intact Psych: calm, cooperative, normal affect Course Course Course Narrative: I discussed the physical exam with the patient, patient tested negative for COVID, influenza and strep. Patient is already on amoxicillin that she is taking for a tooth infection. No further antibiotics needed. The lump in her neck is lymph node, likely reactive from her current viral pharyngitis and tooth infection which have already been addressed For symptomatic treatment, patient was given 1 dose of p.o. Decadron and viscous lidocaine Medical Decision Making Differential Diagnosis Differential Diagnoses: The differential diagnosis associated with the presentation includes (COVID, influenza, strep, viral pharyngitis) Lab Data MDM Lab Attestation statement: I reviewed the patient's lab results. Labs: Lab Results 01/31/22 01/31/22 01/31/22 Range/Units 23:39 23:39 23:39 COVID-19 (OLI) Negative (Negative) COVID-19 Clin Com See Note Influenza Type A (FRANCINE) Negative (Negative) Influenza Type B (FRANCINE) Negative (Negative) Influenza A & B Note See Note S. pyogenes GrpA FRANCINE Negative (Negative) Discharge Plan Discharge Clinical Impression: Acute viral pharyngitis Patient Disposition: Home, Self-Care Instructions: Pharyngitis (ED) Additional Instructions: Please follow-up with your primary care physician tomorrow. If you have any worsening or new symptoms, please return to the emergency room or call 911 Prescriptions: No Action ondansetron HCl [Zofran] 4 mg tablet 4 mg PO Q8H PRN (Reason: nausea and vomiting) Qty: 10 0RF hydrocortisone 2.5 % cream 1 appl topical BID PRN (Reason: skin irritation) Qty: 20 0RF meclizine 25 mg tablet 25 mg PO BID PRN (Reason: dizziness) Qty: 20 0RF sumatriptan succinate 25 mg tablet See Rx Instructions PO .COMPLEX PRN (Reason: migraine headache) Qty: 30 0RF Rx Instructions: take 1 tab at onset of headache; if no relief may repeat 1 tab after at least 2 hrs; max = 4 tabs/24 hr orally PRN;
== END 2022-02-01 00:56 | disposition home or self-care (01) ==
PROVIDERS: Emergency Provider Emergency Medicine; PCP Internal Medicine
DX: J02.9 Acute pharyngitis, unspecified (principal); F12.90 Cannabis use, unspecified, uncomplicated; Z20.822 Contact with and (suspected) exposure to COVID-19
CPT/HCPCS: 87502; 87635; 87651; 99283; J8540

== ENCOUNTER 2022-02-03 14:33 | Emergency (ER) | payer OTHER, SELFPAY ==
--- NOTE | ~2022-02-03 | XR_ITS ---
EXAMINATION: XR CHEST CLINICAL INFORMATION: Chest pain and shortness of breath COMPARISON: Previous chest x-ray from 2015 TECHNIQUE: 2 views of the chest were obtained. FINDINGS: No significant abnormality is noted involving the heart, lungs, mediastinum, bony thorax or soft tissues. XR/XR chest 2V IMPRESSION: Unremarkable examination.
--- NOTE | 2022-02-03 14:36 | ECG_ITS ---
Test Reason : CHEST PAIN Blood Pressure : / mmHG Vent. Rate : 081 BPM Atrial Rate : 081 BPM P-R Int : 160 ms QRS Dur : 090 ms QT Int : 384 ms P-R-T Axes : 066 075 058 degrees QTc Int : 446 ms Normal sinus rhythm with sinus arrhythmia Normal ECG When compared with ECG of 27-DEC-2020 09:59, No significant change was found Referred By: Generic ED Physician Electronically Signed By:ELAINE PANDYA MD
--- NOTE | 2022-02-03 15:50 | ED_ITS ---
HPI - SOB/Dyspnea General Chief Complaint: Chest Pain Stated Complaint: CP, sob Time Seen by Provider: 02/03/22 17:40 Source: patient Mode of arrival: ambulatory Limitations: no limitations History of Present Illness HPI Narrative: 27 yo female with no medical history presents to the ER c/o intermittent, nonradiating chest pains along with SOB and cough that started last night. She reports the pains are on her left chest and sharp, worse with palpation, deep breaths and coughing. No fever or chills. No known sick contacts. MD elicited complaint: shortness of breath and cough Onset (ago): day(s) (1) Context: recent illness Timing: intermittent Severity: moderate Exacerbating factors: coughing, inspiration and deep breaths Relieving factors: rest Associated symptoms: cough Treatment prior to arrival: none Related Data Home oxygen amount: none Previous Rx's Medication Instructions Recorded ondansetron HCl 4 mg tablet 4 mg PO Q8H PRN nausea and 03/24/20 (Zofran) vomiting #10 tabs hydrocortisone 2.5 % topical cream 1 appl topical BID PRN skin 09/10/20 irritation #20 grams meclizine 25 mg tablet 25 mg PO BID PRN dizziness #20 tabs 01/20/22 sumatriptan succinate 25 mg tablet See Rx Instructions PO .COMPLEX 01/20/22 PRN migraine headache #30 tabs Allergies Allergy/AdvReac Type Severity Reaction Status Date / Time No Known Allergies Allergy Verified 02/03/22 15:52 Review of Systems Review of Systems: Constitutional: No Fever, No Chills ENT/Mouth: + sore throat, No Rhinorrhea, No Swallowing Difficulty Cardiovascular: + Chest Pain, + SOB, No Orthopnea, No Edema Respiratory: + Cough, No Sputum, No Wheezing, No dyspnea Gastrointestinal: No Nausea, No Vomiting, No Diarrhea, No abdominal Pain Genitourinary: No Dysuria, No Urinary Frequency, No Hematuria Musculoskeletal: No joint pain, + Myalgias Skin: No Skin Lesions, No rash Neuro: +Weakness, No Numbness, No Dizziness, No Headache Psych: + Anxiety/Panic, No Depression Heme/Lymph: No Bruising, No Lymphadenopathy PMFSH Past Medical History Medical History Allergic rhinitis Carpal tunnel syndrome Constipation Dizziness Mass of right side of neck Migraine No known health problems Obesity (BMI 30-39.9) Peripheral neuropathy Reactive airway disease Surgical History No history of previous surgery Family History Family History Mother No problems noted. Father No problems noted. Social History Social History Housing: Apartment Alcohol intake: never Patient Tobacco Use Status: Never used Tobacco e-Cigarette/Vaping Use: Never Used Second Hand Smoke Exposure: No Substance Use Type: Marijuana Advance Directives: No Advance Directives Information Provided: No service: No Current occupational status: unemployed Cognitive needs: No Hearing needs: No Vision needs: No Physical Exam Vital Signs: Vital Signs: Last Vital Signs Temp 97.9 F 02/03/22 15:51 Pulse 70 02/03/22 15:51 Resp 16 02/03/22 15:51 BP 130/68 02/03/22 15:51 Pulse Ox 100 02/03/22 15:51 O2 Del Method 02/03/22 15:51 BMI result Body Mass Index 25.0 Appearance: Alert. Oriented X3. No acute distress. Eyes: Pupils equal, round and reactive to light. ENT: Pharynx normal. Neck: Normal inspection. Neck supple. CVS: Normal heart rate and rhythm. Pulses normal. Anterior chest wall tenderness to the left of the sternum Respiratory: No respiratory distress. Breath sounds normal. Abdomen: Soft and nontender. +BS x4 Skin: Skin warm and dry. Normal skin color. Normal skin turgor. No rashes. Extremities: No lower extremity edema. No calf swelling or tenderness. Neuro: Oriented X 3. Grossly normal, nonfocal Course Course Course Narrative: 15:50 - RME - 27 yo female presenting to the ER for evaluation of pleuritic chest pain and SOB that started last night. Slight cough as well. VSS with SpO2 100% on RA. Lungs CTAB. PERC negative. Will check CXR and viral swab. Reevaluation(s) Reevaluation #1: CXR clear. viral swab negative. re-evaluation patient feels well. no chest pains. most likely viral syndrome with muscular pains. stable for d/c home with supportive care. Medical Decision Making Lab Data [facility] Lab Attestation statement: I reviewed the patient's lab results. Labs: Lab Results 02/03/22 Range/Units 15:56 Influenza Type A (PCR) NEGATIVE (Negative) Influenza Type B (PCR) NEGATIVE (Negative) RSV RNA Qual (PCR) NEGATIVE (Negative) SARS-CoV-2 RNA (RT-PCR) NEGATIVE (Negative) Independent Interpretation I performed an independent interpretation of an: EKG Interpretation: normal sinus rhythm with sinus arrythmia, HR 81 bpm, normal OH interval, normal QTc, no ST segment elevations or depressions Radiology Impression Discussion of test interpretation with radiology: I have reviewed the radiologist's reading. Radiologist Impression: clear lungs Discharge Plan Discharge Clinical Impression: Acute viral syndrome Patient Disposition: Home, Self-Care Instructions: Viral Syndrome (ED) Additional Instructions: Your EKG today was normal. Your chest x-ray was clear. You tested negative for COVID, Flu and RSV. Your symptoms are most likely due to another viral illness. Your pain is most likely muscular. Recommend motrin and tylenol as needed for pain. Take over the counter cold/flu medications as needed for your symptoms. Rest. Drink plenty of fluids. Follow up with your doctor as needed. If you develop new or worsening symptoms call 911 or come back to the ER for further evaluation. Prescriptions: No Action ondansetron HCl [Zofran] 4 mg tablet 4 mg PO Q8H PRN (Reason: nausea and vomiting) Qty: 10 0RF hydrocortisone 2.5 % cream 1 appl topical BID PRN (Reason: skin irritation) Qty: 20 0RF meclizine 25 mg tablet 25 mg PO BID PRN (Reason: dizziness) Qty: 20 0RF sumatriptan succinate 25 mg tablet See Rx Instructions PO .COMPLEX PRN (Reason: migraine headache) Qty: 30 0RF Rx Instructions: take 1 tab at onset of headache; if no relief may repeat 1 tab after at least 2 hrs; max = 4 tabs/24 hr orally PRN; Stand Alone Forms: Work/School Release
[2022-02-03 15:51] VITALS: BP 130/68; PULSE 70; RESP 16; TEMP 36.6; O2SAT 100; BMI 25.0
[2022-02-03 16:44] LABS: Influenza A PCR NEGATIVE (Negative); Influenza B PCR NEGATIVE (Negative); Resp Syncy Virus RNA Qual PCR NEGATIVE (Negative); SARS COV2 PCR INHOUSE NEGATIVE (Negative)
== END 2022-02-03 18:08 | disposition home or self-care (01) ==
PROVIDERS: Physician Assistant; Emergency Provider Emergency Medicine; PCP Internal Medicine
DX: B34.9 Viral infection, unspecified (principal); R07.89 Other chest pain; R06.02 Shortness of breath; Z20.822 Contact with and (suspected) exposure to COVID-19; Z79.899 Other long term (current) drug therapy
CPT/HCPCS: 0241U; 71046; 93005; 99283

== ENCOUNTER 2022-02-06 01:37 | Emergency (ER) | payer OTHER, SELFPAY ==
[2022-02-06 02:28] VITALS: BP 138/74; PULSE 74; RESP 16; TEMP 36.4; O2SAT 99; BMI 25.0
--- NOTE | 2022-02-06 04:41 | ED.DENTAL ---
HPI - Dental/Oral General Chief complaint: Dental/Oral Stated complaint: tooth pain Time Seen by Provider: 02/06/22 04:30 Source: patient Mode of arrival: ambulatory Limitations: no limitations History of Present Illness HPI Narrative: Patient had chronic dental caries with broken bilateral lower molar been having pain off and on seen the dentist 2 weeks ago urine antibiotic unable to get the next appointment sooner complaining of pain again no fever no chills Related Data Previous Rx's Medication Instructions Recorded ondansetron HCl 4 mg tablet 4 mg PO Q8H PRN nausea and 03/24/20 (Zofran) vomiting #10 tabs hydrocortisone 2.5 % topical cream 1 appl topical BID PRN skin 09/10/20 irritation #20 grams meclizine 25 mg tablet 25 mg PO BID PRN dizziness #20 tabs 01/20/22 sumatriptan succinate 25 mg tablet See Rx Instructions PO .COMPLEX 01/20/22 PRN migraine headache #30 tabs amoxicillin 875 mg-potassium 1 tab PO BID #20 tabs 02/06/22 clavulanate 125 mg tablet tramadol 50 mg tablet 50 mg PO Q6H PRN pain #20 tabs 02/06/22 Allergies Allergy/AdvReac Type Severity Reaction Status Date / Time No Known Allergies Allergy Verified 02/06/22 02:33 Review of Systems Review of Systems: Yes all other systems are reviewed and are negative PMFSH Past Medical History Medical History Allergic rhinitis Carpal tunnel syndrome Constipation Dizziness Mass of right side of neck Migraine No known health problems Obesity (BMI 30-39.9) Peripheral neuropathy Reactive airway disease Surgical History No history of previous surgery Family History Family History Mother No problems noted. Father No problems noted. Social History Social History Housing: Apartment Alcohol intake: never Patient Tobacco Use Status: Never used Tobacco Smoked in Last 30 Days: No e-Cigarette/Vaping Use: Never Used Second Hand Smoke Exposure: No Use of substances other than those prescribed or required for medical reasons: No Substance Use Type: Marijuana Advance Directives: No Advance Directives Information Provided: Yes service: No Current occupational status: unemployed Cognitive needs: No Hearing needs: No Vision needs: No Physical Exam Vital Signs: Vital Signs: Last Vital Signs Temp 97.6 F 02/06/22 02:28 Pulse 74 02/06/22 02:28 Resp 16 02/06/22 02:28 BP 138/74 02/06/22 02:28 Pulse Ox 99 02/06/22 02:28 O2 Del Method 02/06/22 02:28 BMI result Body Mass Index 25.0 Appearance: Alert. Oriented X3. No acute distress. ENT: Pharynx normal. Oral Mucosa moist bilateral lower molar broken tooth no gum swelling Neck: Normal inspection. Neck supple. CVS: Normal heart rate and rhythm. Pulses normal. Respiratory: No respiratory distress. Equal air entry bilateral, Neuro: Oriented X 3. HEENT: Throat image: 1. Broken tooth exposed pulp no significant gum swelling 2. Broken toes exposed pulp no significant gum swelling Medications Administered Discontinued Medications Generic Name Dose Route Start Last Admin Trade Name Freq PRN Reason Stop Dose Admin Amoxicillin/Clavulanate Potassium 875 mg 02/06/22 04:41 02/06/22 04:53 Amoxicillin/Potassium Clav 875 Mg Tablet PO 02/06/22 04:42 875 mg ONCE ONE Administration Tramadol HCl 50 mg 02/06/22 04:41 02/06/22 04:52 Tramadol Hcl 50 Mg Tablet PO 02/06/22 04:42 50 mg ONCE ONE Administration Discharge Plan Discharge Clinical Impression: Dental caries Patient Disposition: Home, Self-Care Instructions: Toothache (ED) Additional Instructions: Take antibiotics and pain medication as prescribed and follow with dentist Prescriptions: New tramadol 50 mg tablet 50 mg PO Q6H PRN (Reason: pain) Qty: 20 0RF amoxicillin-pot clavulanate 875-125 mg tablet 1 tab PO BID Qty: 20 0RF No Action ondansetron HCl [Zofran] 4 mg tablet 4 mg PO Q8H PRN (Reason: nausea and vomiting) Qty: 10 0RF hydrocortisone 2.5 % cream 1 appl topical BID PRN (Reason: skin irritation) Qty: 20 0RF meclizine 25 mg tablet 25 mg PO BID PRN (Reason: dizziness) Qty: 20 0RF sumatriptan succinate 25 mg tablet See Rx Instructions PO .COMPLEX PRN (Reason: migraine headache) Qty: 30 0RF Rx Instructions: take 1 tab at onset of headache; if no relief may repeat 1 tab after at least 2 hrs; max = 4 tabs/24 hr orally PRN; Interventions: ED Discharge Assessment Last Done: 02/06/22 04:59 Discharge Date/Time: 02/06/22 05:00
[2022-02-06] MEDS: traMADoL HCL 50 MG TABLET PO (04:52)
[2022-02-06] MEDS: Amoxicillin/Potassium Clav 875 MG TABLET PO (04:53)
--- NOTE | 2022-02-06 04:57 | PC.NURSE ---
pt ambulatory at time of discharge. pt medicated according to apr. pt reports 8/10 pain. pt provided with discharge packet. pt verbalized understanding of discharge plan
== END 2022-02-06 05:00 | disposition home or self-care (01) ==
PROVIDERS: Emergency Provider Internal Medicine; PCP Internal Medicine
DX: K02.9 Dental caries, unspecified (principal); K08.89 Other specified disorders of teeth and supporting structures
CPT/HCPCS: 99282; 99283; 99284

== ENCOUNTER 2022-02-06 15:42 | Emergency (ER) | payer OTHER, SELFPAY ==
[2022-02-06 15:51] VITALS: BP 125/72; PULSE 88; RESP 18; TEMP 36.6; O2SAT 100; BMI 25.0
--- NOTE | 2022-02-06 15:58 | ED_ITS ---
HPI - General Adult General Chief complaint: General Medical Stated complaint: ?FB in throat Time Seen by Provider: 02/06/22 16:00 Source: patient Mode of arrival: ambulatory Limitations: no limitations History of Present Illness HPI narrative: Patient is a 27 year old assigned female at with no reported medical history presenting to the emergency department today with a foreign body sensation in her throat. Patient states that she has been seen here before for this and when she was given viscous lidocaine in the department it helped, but she was not sent any home with her. Patient denies any dizziness, lightheadedness, abdominal pain, nausea, vomiting, fever, chills, blurry vision, double vision, loss of vision, chest pain, difficulty breathing, shortness of breath, back pain, night sweats, pain with urination, increased urinary frequency, increased urinary urgency, blood in her urine or stool, syncope or a near syncopal episode, recent trauma or falls, bowel incontinence, bladder i ncontinence, bowel retention, bladder retention, or any other complaints at this time. Onset (ago): day(s) Radiation: non-radiation Severity: mild Severity scale (1-10): 2 Relieving factors: none Exacerbating factors: none Associated symptoms: denies other symptoms Treatments prior to arrival: none Related Data Previous Rx's Medication Instructions Recorded ondansetron HCl 4 mg tablet 4 mg PO Q8H PRN nausea and 03/24/20 (Zofran) vomiting #10 tabs hydrocortisone 2.5 % topical cream 1 appl topical BID PRN skin 09/10/20 irritation #20 grams meclizine 25 mg tablet 25 mg PO BID PRN dizziness #20 tabs 01/20/22 sumatriptan succinate 25 mg tablet See Rx Instructions PO .COMPLEX 01/20/22 PRN migraine headache #30 tabs amoxicillin 875 mg-potassium 1 tab PO BID #20 tabs 02/06/22 clavulanate 125 mg tablet lidocaine HCl 2 % mucosal solution 1.25 ml PO BID PRN pain #100 mL 02/06/22 (Lidocaine Viscous) prednisone 20 mg tablet 20 mg PO DAILY 7 days #7 tabs 02/06/22 tramadol 50 mg tablet 50 mg PO Q6H PRN pain #20 tabs 02/06/22 Allergies Allergy/AdvReac Type Severity Reaction Status Date / Time No Known Allergies Allergy Verified 02/06/22 15:51 Review of Systems Constitutional: Constitutional: Reports no additional constitutional complaints, Denies chills, Denies fever(s) and Denies night sweats Eyes: Eyes: Reports no additional eye complaints, Denies blurry vision, Denies change in vision, Denies diplopia, Denies eye discharge, Denies loss of vision and Denies eye pain ENT: Denies dizziness Comments: foreign body sensation in throat Cardiovascular: Cardiovascular: Reports no additional cardiovascular complaints, Denies chest pain, Denies lightheadedness, Denies Loss of Consciousness and Denies dyspnea Respiratory: Respiratory: Reports no additional respiratory complaints and Denies dyspnea Gastrointestinal: Gastrointestinal: Reports no additional gastrointestinal c omplaints, Denies abdominal pain, Denies melena, Denies hematochezia, Denies change in bowel habits and Denies change in stool character Genitourinary: Genitourinary: Denies hematuria, Denies urinary frequency, Denies dysuria, Denies urinary incontinence, Denies urinary hesitancy and Denies urinary urgency Musculoskeletal: Musculoskeletal: Reports no additional musculoskeletal complaints, Denies numbness and Denies tingling Neurologic: Denies dizziness, Denies loss of vision, Denies numbness and Denies tingling Psychiatric: Psychiatric: Reports no additional psychiatric complaints Endocrine: Endocrine: Reports no additional endocrine complaints Hematologic/Lymphatic: Hematologic/Lymphatic: Reports no additional hematologic/lymphatic complaints Allergic/Immunologic: Allergic/Immunologic: Reports no additional allergic/immunologic complaints [facility] Past Medical History Attestation statement: The following information was validated with the patient. Source: old records reviewed and nursing notes reviewed Medical History Allergic rhinitis Carpal tunnel syndrome Constipation Dizziness Mass of right side of neck Migraine No known health problems Obesity (BMI 30-39.9) Peripheral neuropathy Reactive airway disease Surgical History No history of previous surgery Family History Family History Mother No problems noted. Father No problems noted. Social History Social History Housing: Apartment Alcohol intake: never Patient Tobacco Use Status: Never used Tobacco e-Cigarette/Vaping Use: Never Used Second Hand Smoke Exposure: No Substance Use Type: Marijuana Advance Directives: No Advance Directives Information Provided: Yes service: No Current occupational status: unemployed Cognitive needs: No Hearing needs: No Vision needs: No Physical Exam ED Vital Signs: Vital Signs - 24 hr 02/06/22 15:51 Temperature 97.9 F Pulse Rate 88 Respiratory Rate 18 Blood Pressure 125/72 Pulse Oximetry 100 Oxygen Delivery Method Room Air BMI result Body Mass Index 25.0 Const General: cooperative, no acute distress, alert and awake Nutritional Appearance: well nourished Orientation/consciousness: patient oriented x3 Limitations: no limitations HENMT Head: Yes normal to inspection and Yes atraumatic Ears: hearing grossly normal bilaterally and external ears normal General nose exam: Normal external nose present, no nasal discharge noted and no epistaxis Face and sinus: Yes normal facial exam, No abrasion and No laceration Mouth: Normal oral and palatal mucosa present, no drooling and no muffled voice Eyes General: appearance normal, both eyes and all related structures Periorbital: periorbital findings normal Eyelids: Yes eyelids normal Conjunctivae: conjunctivae normal Pupils: Equal, round and reactive pupils present EOM: EOMs intact bilaterally Neck Neck: Yes normal visual inspection, Yes full ROM and Yes no lymphadenopathy Chest Chest palpation & inspection: normal inspection of the chest Resp Effort & Inspection: normal respiratory effort and able to speak in complete sentences Auscultation: clear to auscultation bilaterally Cardio Rate: regular rate Rhythm: regular rhythm GI Inspection: Yes normal to inspection Palpation (GI): Soft to palpation, not firm, nontender and no guarding Neuro General: patient oriented x3 and moves all extremities Cranial nerves: Yes Equal, round and reactive pupils present Cognition (Neuro): normal cognition Motor exam (neuro): 5/5 motor strength present throughout Sensory Exam: Normal double simultaneous stimulation for sensation Coordination: [id number] test normal Extrem General: Yes normal to inspection, Yes full ROM and Yes capillary refill normal Psych Appearance: grossly normal Mental Status: mental status grossly normal Affect: normal affect Attitude: cooperative Thought process: Normal thought process present Thought content: Normal thought content present Insight: Good insight present (Psych) Medical Decision Making Medical Decision Making MDM Narrative: Patient is a 27 year old assigned female at with no reported medical history presenting to the emergency department today with a foreign body sensation in her throat. Patient's physical exam was unremarkable. I explained my physical exam findings to the patient. I answered all questions asked by the patient. I stressed the importance of the patient taking her medication as prescribed. I stressed the importance of the patient following up with her primary care provider and a dentist. I stressed the importance of the patient returning to the emergency department immediately if her symptoms were to worsen or if she were to develop any dizziness, shortness of breath, difficulty breathing, chest pain, blurry vision, loss of vision, nausea, vomiting, abdominal pain, fever, chills, back pain, or any other complaints. Patient verbalized agreement and understanding with this treatment plan and discharge. Differential Diagnosis Differential Diagnoses: The differential diagnosis associated with the presentation includes pharyngitis, chronic dental pain Discharge Plan Discharge Clinical Impression: Pharyngitis Patient Disposition: Home, Self-Care Instructions: Pharyngitis (ED) Additional Instructions: Follow up with your primary care provider. Return to the emergency department immediately if your symptoms worsen or if you develop any dizziness, shortness of breath, difficulty breathing, chest pain, blurry vision, loss of vision, nausea, vomiting, abdominal pain, fever, chills, back pain, or any other complaints. Prescriptions: New lidocaine HCl [Lidocaine Viscous] 2 % solution 1.25 ml PO BID PRN (Reason: pain) Qty: 100 0RF prednisone 20 mg tablet 20 mg PO DAILY 7 Days Qty: 7 0RF No Action ondansetron HCl [Zofran] 4 mg tablet 4 mg PO Q8H PRN (Reason: nausea and vomiting) Qty: 10 0RF tramadol 50 mg tablet 50 mg PO Q6H PRN (Reason: pain) Qty: 20 0RF amoxicillin-pot clavulanate 875-125 mg tablet 1 tab PO BID Qty: 20 0RF hydrocortisone 2.5 % cream 1 appl topical BID PRN (Reason: skin irritation) Qty: 20 0RF meclizine 25 mg tablet 25 mg PO BID PRN (Reason: dizziness) Qty: 20 0RF sumatriptan succinate 25 mg tablet See Rx Instructions PO .COMPLEX PRN (Reason: migraine headache) Qty: 30 0RF Rx Instructions: take 1 tab at onset of headache; if no relief may repeat 1 tab after at least 2 hrs; max = 4 tabs/24 hr orally PRN; Referrals: Domitila Newman MD [Primary Care Provider] - Interventions: ED Discharge Assessment Last Done: 02/06/22 16:00 Discharge Date/Time: 02/06/22 16:07 Print Language: Bulgarian
== END 2022-02-06 16:07 | disposition home or self-care (01) ==
LOC: HO.ED 16:04
PROVIDERS: Emergency Provider Emergency Medicine; PCP Internal Medicine
DX: J02.9 Acute pharyngitis, unspecified (principal)
CPT/HCPCS: 99282

== ENCOUNTER 2022-02-11 02:45 | Emergency (ER) | payer OTHER, SELFPAY ==
[2022-02-11 02:57] VITALS: BP 121/72; PULSE 79; RESP 20; TEMP 36.7; O2SAT 100; BMI 25.0
[2022-02-11 03:18] LABS: IDNOW Serial# 6674DD1D; Strep A Nucleic Acid Negative (Negative)
[2022-02-11 03:44] LABS: Influenza A PCR NEGATIVE (Negative); Influenza B PCR NEGATIVE (Negative); Resp Syncy Virus RNA Qual PCR NEGATIVE (Negative); SARS COV2 PCR INHOUSE NEGATIVE (Negative)
[2022-02-11 04:31] VITALS: BP 125/74; PULSE 74; RESP 14; TEMP 36.6; O2SAT 99
[2022-02-11 04:32] VITALS: O2SAT 97
[2022-02-11 05:08] LABS: Monotest Negative (Negative)
--- NOTE | 2022-02-11 09:27 | ED.URI ---
HPI - URI/Sore Throat General Chief Complaint: Upper Respiratory Symptoms Stated Complaint: throat pain Time Seen by Provider: 02/11/22 08:58 Source: patient Mode of arrival: ambulatory Limitations: no limitations History of Present Illness HPI Narrative: 27-year-old female who presents emergency department for evaluation of sore throat, rhinorrhea, right posterior painful adenopathy. This is the patient's 4th emergency department visit for these symptoms. She was seen on 02/03/2022 diagnosed with acute viral syndrome, on 02/06/2022 2 times and diagnosed with acute viral syndrome and dental infection. The patient was started on Augmentin 875/125 b.i.d. x 10 days and she has been compliant with this medication. She was also started on prednisone 20 mg once a day for 7 days and she has almost completed this dose. She states that the prednisone did help her symptoms but she still has a sore throat which hurts when she swallows. She has rhinorrhea and a nonproductive cough. She states that the right back of her neck has a painful lump which is not improved. She has subjective fevers but no chills. She denied chest pain shortness of breath or dyspnea on exertion. She does have a cough which is productive of yellow mucus. Related Data Previous Rx's Medication Instructions Recorded ondansetron HCl 4 mg tablet 4 mg PO Q8H PRN nausea and 03/24/20 (Zofran) vomiting #10 tabs hydrocortisone 2.5 % topical cream 1 appl topical BID PRN skin 09/10/20 irritation #20 grams meclizine 25 mg tablet 25 mg PO BID PRN dizziness #20 tabs 01/20/22 sumatriptan succinate 25 mg tablet See Rx Instructions PO .COMPLEX 01/20/22 PRN migraine headache #30 tabs amoxicillin 875 mg-potassium 1 tab PO BID #20 tabs 02/06/22 clavulanate 125 mg tablet lidocaine HCl 2 % mucosal solution 1.25 ml PO BID PRN pain #100 mL 02/06/22 (Lidocaine Viscous) prednisone 20 mg tablet 20 mg PO DAILY 7 days #7 tabs 02/06/22 tramadol 50 mg tablet 50 mg PO Q6H PRN pain #20 tabs 02/06/22 ibuprofen 600 mg tablet 600 mg PO Q6H PRN pain #30 tabs 02/11/22 Allergies Allergy/AdvReac Type Severity Reaction Status Date / Time No Known Allergies Allergy Verified 02/06/22 15:51 Review of Systems Review of Systems: Yes all other systems are reviewed and are negative [facility] Past Medical History Medical History Allergic rhinitis Carpal tunnel syndrome Constipation Dizziness Mass of right side of neck Migraine No known health problems Obesity (BMI 30-39.9) Peripheral neuropathy Reactive airway disease Surgical History No history of previous surgery Family History Family History Mother No problems noted. Father No problems noted. Social History Social History Housing: Apartment Alcohol intake: never Patient Tobacco Use Status: Never used Tobacco Smoked in Last 30 Days: No e-Cigarette/Vaping Use: Never Used Second Hand Smoke Exposure: No Use of substances other than those prescribed or required for medical reasons: No Substance Use Type: Marijuana Advance Directives: No service: No Current occupational status: unemployed Cognitive needs: No Hearing needs: No Vision needs: No Physical Exam Vital Signs: Vital Signs: Last Vital Signs Temp 97.8 F 02/11/22 04:31 Pulse 74 02/11/22 04:31 Resp 14 02/11/22 04:31 BP 125/74 02/11/22 04:31 Pulse Ox 97 02/11/22 04:32 O2 Del Method 02/11/22 04:32 BMI result Body Mass Index 25.0 Const: General: cooperative and no acute distress Orientation/consciousness: oriented to person and oriented to place Limitations: no limitations HEENT: Head: Yes normal to inspection, Yes normocephalic and Yes atraumatic Ears: external ears normal General nose exam: Normal external nose present Face and sinus: Yes normal facial exam Mouth: other (Patient has 2 lower molars which are decayed down to the gum, bilateral) Throat: Yes posterior oropharynx normal Eyes: General: appearance normal, both eyes and all related structures Pupils: Equal, round and reactive pupils present Neck: Other: Patient has several small tender right posterior lymph node, there is no increased warmth erythema over the skin, no drainage Chest: Chest palpation & inspection: normal inspection of the chest and normal palpation of entire chest wall Resp: Effort & Inspection: normal respiratory effort and able to speak in complete sentences Auscultation: clear to auscultation bilaterally Cardio: Rate: regular rate Rhythm: regular rhythm Heart sounds: S1 normal heart sound present, S2 normal heart sound present and no murmurs GI: Inspection: Yes normal to inspection Palpation (GI): Soft to palpation, nontender and no guarding Auscultation: normal bowel sounds : General: Yes no CVA tenderness Back/Spine/Pelvis: Back: no CVA tenderness Neuro: General: oriented to person and oriented to place Cranial nerves: Yes CN's II-XII intact bilaterally and Yes Equal, round and reactive pupils present Medical Decision Making Medical Decision Making [facility] Narrative: 27-year-old female who presents emergency department for evaluation of upper respiratory illness with pharyngitis and right posterior tender adenopathy. This is the patient's 4th emergency department visit, the patient has been on Augmentin and prednisone with minimal improvement of her symptoms. The Augmentin was started for dental infection. Her examination was unremarkable. 0937: Laboratory evaluation interpreted by me as follows: Ritchie, rapid strep negative. RSV, COVID and influenza negative. All of these tests were negative suggested the patient most likely has a viral syndrome. The patient was advised to stop taking her prednisone but to finish a 10 day course of Augmentin. Patient was started on ibuprofen 600 mg 3 times a day as needed for pain and fever. She was given printed and verbal instructions and discharged home. She is also given a work note not return to work until 02/15/2022. Differential Diagnosis Differential diagnosis includes was not limited to viral syndrome, mononucleosis, strep pharyngitis, bronchitis, URI Lab Data [facility] Lab Attestation statement: I reviewed the patient's lab results. See [facility] for my discussion of labs. Labs: Lab Results 02/11/22 02/11/22 02/11/22 Range/Units 03:00 03:00 04:44 Monoscreen Negative (Negative) Influenza Type A (PCR) NEGATIVE (Negative) Influenza Type B (PCR) NEGATIVE (Negative) RSV RNA Qual (PCR) NEGATIVE (Negative) SARS-CoV-2 RNA (RT-PCR) NEGATIVE (Negative) S. pyogenes GrpA FRANCINE Negative (Negative) Discharge Plan Discharge Clinical Impression: URI, acute Patient Disposition: Home, Self-Care Instructions: Viral Syndrome (ED) Additional Instructions: Your mononucleosis test was negative. Your rapid strep test was negative. Your COVID-19, RSV and influenza tests were negative. Your symptoms are consistent with a viral infection. Finish the amoxicillin/clavulanate prescription Stop taking prednisone. Take ibuprofen 600 mg pills, 1 pills every 6 hours as needed for pain or fever. Take Tylenol (acetaminophen) 500 mg pills, 2 pills every 4 to 6 hours as needed for pain. Follow-up with your doctor in 2 days. Please return to the emergency department if your symptoms get worse or if you develop any symptoms that are concerning to you. Please see work note Prescriptions: New ibuprofen 600 mg tablet 600 mg PO Q6H PRN (Reason: pain) Qty: 30 0RF No Action ondansetron HCl [Zofran] 4 mg tablet 4 mg PO Q8H PRN (Reason: nausea and vomiting) Qty: 10 0RF tramadol 50 mg tablet 50 mg PO Q6H PRN (Reason: pain) Qty: 20 0RF amoxicillin-pot clavulanate 875-125 mg tablet 1 tab PO BID Qty: 20 0RF lidocaine HCl [Lidocaine Viscous] 2 % solution 1.25 ml PO BID PRN (Reason: pain) Qty: 100 0RF prednisone 20 mg tablet 20 mg PO DAILY 7 Days Qty: 7 0RF hydrocortisone 2.5 % cream 1 appl topical BID PRN (Reason: skin irritation) Qty: 20 0RF meclizine 25 mg tablet 25 mg PO BID PRN (Reason: dizziness) Qty: 20 0RF sumatriptan succinate 25 mg tablet See Rx Instructions PO .COMPLEX PRN (Reason: migraine headache) Qty: 30 0RF Rx Instructions: take 1 tab at onset of headache; if no relief may repeat 1 tab after at least 2 hrs; max = 4 tabs/24 hr orally PRN; Stand Alone Forms: Work/School Release
[2022-02-11] MEDS: Ibuprofen 600 MG TABLET PO (09:43)
== END 2022-02-11 09:46 | disposition home or self-care (01) ==
PROVIDERS: Emergency Provider Emergency Medicine Emergency Medical Services; PCP Internal Medicine
DX: J06.9 Acute upper respiratory infection, unspecified (principal); R07.0 Pain in throat; Z20.822 Contact with and (suspected) exposure to COVID-19; Z79.899 Other long term (current) drug therapy
CPT/HCPCS: 0241U; 36415; 86308; 87651; 99283; 99284

== ENCOUNTER 2022-02-22 15:39 | Outpatient (REF) | payer OTHER, SELFPAY ==
--- NOTE | ~2022-02-22 | US_ITS ---
EXAMINATION: US SOFT TISSUE OF THE NECK CLINICAL INFORMATION: Localized swelling, mass and lump, neck. COMPARISON: None TECHNIQUE: Linear transducer grayscale and color Doppler examination of the right posterior neck. FINDINGS: Within the posterior right cervical region, corresponding with the palpable finding, there is a subcutaneous anechoic, simple cyst measuring 7 x 4 x 3 mm. No mass or lymphadenopathy is seen. There is no foreign body. US/US soft tiss head and/or neck IMPRESSION: A 7 mm in maximal diameter anechoic, simple cyst is seen within the posterior right cervical region. This may represent a small branchial cleft cyst. The far lateral location would make a paramedian thyroglossal duct cyst less likely. No solid mass or lymphadenopathy is noted.
== END 2022-02-22 15:40 | disposition home or self-care (01) ==
LOC: HO.US 15:39
PROVIDERS: PCP Internal Medicine; Visit Provider Nurse Practitioner Family
DX: R22.1 Localized swelling, mass and lump, neck (principal)
CPT/HCPCS: 76536

== ENCOUNTER → 2022-06-16 10:26 | Outpatient (BNVA) | payer OTHER, SELFPAY | PROVIDERS: PCP Internal Medicine; Visit Provider Surgery | DX: R22.1 Localized swelling, mass and lump, neck (principal) | CPT/HCPCS: 99202 ==

== ENCOUNTER 2022-06-16 11:26 | Emergency (ER) | payer OTHER, SELFPAY ==
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
[2022-06-16 11:35] VITALS: BP 128/76; PULSE 105; O2SAT 99
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
[2022-06-16 12:12] VITALS: BP 127/86; PULSE 89; RESP 16; TEMP 36.7; O2SAT 100; BMI 24.6
[2022-06-16] MEDS: Acetaminophen 325 MG TABLET 975 MG PO (15:37)
== END 2022-06-16 17:37 | disposition home or self-care (01) ==
PROVIDERS: Emergency Provider Emergency Medicine Emergency Medical Services; PCP Internal Medicine
DX: S06.0X0A Concussion without loss of consciousness, initial encounter (principal); V43.52XA Car driver injured in collision with other type car in traffic accident, initial encounter; Y93.89 Activity, other specified; Y92.414 Local residential or business street as the place of occurrence of the external cause; Y99.9 Unspecified external cause status
CPT/HCPCS: 70450; 72125; 99283; 99284

== ENCOUNTER 2022-08-09 13:16 | Outpatient (REF) | payer OTHER, SELFPAY | END 2022-08-09 13:17 | disposition home or self-care (01) | LOC: HO.US 13:16 | PROVIDERS: PCP Internal Medicine; Visit Provider Surgery | DX: R22.1 Localized swelling, mass and lump, neck (principal) | CPT/HCPCS: 76536 ==

== ENCOUNTER 2022-09-14 09:46 | Outpatient (AMB) | payer OTHER, SELFPAY ==
[2022-09-14 09:49] VITALS: BP 102/66; PULSE 75; O2SAT 100; BMI 24.6
--- NOTE | 2022-09-14 09:49 | MHC.PC.OV ---
Vital Signs 09/14/22 09:49 Height 5 ft 5 in Weight 148 lb BMI 24.6 BP 102/66 Blood Pressure Location Lt brachial Position Sitting Pulse 75 Pulse Source Pulse Oximeter Temp Source Skin Pulse Oximetry (%) 100 Oxygen Delivery Method Room Air Intake Visit Reasons: Constipation/ Abdomen Pain Intake Note: pt states on going constipation with no relief Blood Bank Credit Clerk Required: No Allergies No Known Allergies Allergy (Verified 09/14/22 09:57) Medication List - Last Reconciled 09/14/22 by MALENA Stallings fluticasone propionate 50 mcg/actuation (Flonase Allergy Relief) 1 spray intranasal DAILY Tobacco use date assessed: 09/14/22 Dental Screening Dental Screen Date: 09/14/22 Did you have a dental visit in the last 12 months?: Yes Did you have a dental problem in the last 6 months where you did not have access to dental care?: No HPI Constipation/ Abdomen Pain HPI Details Patient is a 27-year-old female presents today for the same day visit due to ongoing constipation for the past [address] Newman. Medical history significant for migraine. Patient reports last bowel movement 3 days ago, which was hard and then soft. She reports sometime she does not have bowel movement for 1 week. Reports using [id number] Dulcolax tablets with improvement. Reports intermittent abdominal bloating. Reports intermittent abdominal discomfort when no bowel movement in couple days. Denies nausea or vomiting, no diarrhea, no blood in stool. Reports intermittent hemorrhoids. Reports staying active, drinking water and eating dietary fiber. [facility] Medical History Allergic rhinitis Carpal tunnel syndrome Constipation Dizziness Migraine No known health problems Obesity (BMI 30-39.9) Peripheral neuropathy Reactive airway disease Surgical History Mass of right side of neck No history of previous surgery Family History Mother No problems noted. Father No problems noted. Social History Housing: Apartment Alcohol intake: never Patient Tobacco Use Status: Never used Tobacco e-Cigarette/Vaping Use: Never Used Second Hand Smoke Exposure: No Substance Use Type: Marijuana service: No Current occupational status: unemployed Cognitive needs: No Hearing needs: No Vision needs: No Questionnaire PHQ-9 Over the last 2 weeks, how often have you been bothered by any of the following problems? 1. Little interest or pleasure in doing things: not at all 2. Feeling down, depressed, or hopeless: not at all 3. Trouble falling or staying asleep, or sleeping too much: not at all 4. Feeling tired or having little energy: not at all 5. Poor appetite or overeating: not at all 6. Feeling bad about yourself - or that you are a failure or have let yourself or your family down: not at all 7. Trouble concentrating on things, such as reading the newspaper or watching television: not at all 8. Moving or speaking so slowly that other people could have noticed. Or the opposite - being so fidgety or restless that you have been moving around a lot more than usual: not at all 9. Thoughts that you would be better off or of hurting yourself in some way: not at all Total score: 0 Depression Screening Interpretation: Negative 96124 - PHQ-9 Billing: Yes Source: Developed by Drs. Darshan Ortiz, Manuel Jhaveri and colleagues, with an educational danilo from [email or web address]. Thrive Questionnaire Date Thrive assessed: 02/25/22 AUDIT C Alcohol Use Questionnaire (AUDIT-C) 1. How often do you have a drink containing alcohol?: Never 2. How many drinks containing alcohol do you have on a typical day when you are drinking?: 1 or 2 (none) 3. How often do you have six or more drinks on one occasion?: Never Total Score: 0 Score Reviewed/Action Taken: No LETA-7 AMB Questionnaire LETA-7 Date LETA - 7 assessed: 02/25/22 Source: Developed by Drs. Darshan Ortiz, Manuel Jhaveri and colleagues, with an educational danilo from [email or web address]. Review of Systems Const Denies body aches, Denies chills, Denies fever(s) and Denies headache(s) Eyes Denies change in vision ENT Denies dizziness, Denies otalgia, Denies headache(s), Denies nasal discharge, Denies sinus pain and Denies sore throat Card Denies chest pain, Denies edema, Denies lightheadedness and Denies dyspnea Resp Denies cough and Denies dyspnea GI Reports abdominal pain, Denies melena, Reports bloating, Denies hematochezia, Reports constipation, Denies diarrhea, Denies nausea and Denies vomiting Denies dysuria Musc Denies myalgias Skin/Breast Denies rash Neuro Denies dizziness and Denies headache(s) Physical exam (Primary Care) Vital Signs: Last Vital Signs Pulse 75 09/14/22 09:49 BP 102/66 09/14/22 09:49 Pulse Ox 100 09/14/22 09:49 Oxygen Delivery Method Room Air 09/14/22 09:49 BMI result Body Mass Index 24.6 Tobacco/Smoking Status: Tobacco use Status Tobacco use date assessed 09/14/22 09/14/22 09:50 Patient Tobacco Use Status Never used Tobacco 09/14/22 09:50 e-Cigarette/Vaping Use Never Used 09/14/22 09:50 PHQ-9: PHQ-9 Score PHQ-9: Total score 0 09/14/22 09:55 Depression Screening Interpretation: Negative Thrive Assessment: Date of Thrive Assessment Date Thrive assessed 02/25/22 09/14/22 09:50 Const General: cooperative and no acute distress Orientation/consciousness: patient oriented x3 HENMT Head: Yes normocephalic and Yes atraumatic Face and sinus: Yes sinuses nontender Mouth: oropharynx normal and moist mucous membranes Throat: Yes posterior oropharynx normal Eyes General: appearance normal, both eyes and all related structures Neck Neck: Yes normal visual inspection, Yes full ROM and Yes no lymphadenopathy Resp Effort & Inspection: normal respiratory effort and able to speak in complete sentences Auscultation: clear to auscultation bilaterally, no crackles, no rales, no rhonchi and no wheezes Cardio Rate: regular rate Rhythm: regular rhythm Heart sounds: S1 normal heart sound present and S2 normal heart sound present GI Palpation (GI): Soft to palpation, not firm, nontender, no guarding, not rigid and no hepatosplenomegaly Auscultation: normal bowel sounds Skin General skin exam: no rashes or lesions noted Neuro General: patient oriented x3 Gait exam (Neuro): Normal gait present Extrem General: Yes full ROM Assessment and Plan Assessment & Plan (1) Constipation: Code(s): K59.00 - Constipation, unspecified Plan: Increase dietary fiber, fluid consumption, and stay physically active Trial of Colace daily p.r.n. Can continue Doculax tablets p.r.n. Follow-up with PCP as scheduled or sooner as needed (2) Abdominal bloating: Code(s): R14.0 - Abdominal distension (gaseous) Plan: Trial of simethicone t.i.d. q.i.d. p.r.n. Plan Keep appointment with PCP as scheduled or follow-up sooner as needed Patient would like to hold off on GI referral at this time Medications: New simethicone (Gas Relief 80 (simethicone)) 80 mg PO TID-QID PRN 30 tabs 0RF abdominal distention R14.0 - Abdominal distension (gaseous) docusate sodium (Colace) 100 mg PO DAILY PRN 30 caps 0RF constipation K59.00 - Constipation, unspecified Coding Level of Care Code Est Pt Level 3 (12735) Diagnoses Constipation K59.00 Abdominal bloating R14.0
== END 2022-09-14 10:09 | disposition home or self-care (01) ==
PROVIDERS: PCP Internal Medicine; Visit Provider Nurse Practitioner Family
DX: K59.00 Constipation, unspecified (principal); R14.0 Abdominal distension (gaseous)
CPT/HCPCS: 99213

== ENCOUNTER 2022-09-24 09:29 | Outpatient (AMB) | payer OTHER, SELFPAY ==
[2022-09-24 09:52] VITALS: BP 112/70; PULSE 74; TEMP 36.6; O2SAT 100; BMI 24.8
--- NOTE | 2022-09-24 09:52 | MHC.OFFWIV ---
Intake Vital Signs 09/24/22 09:52 Height 5 ft 5 in Weight 149 lb BMI 24.8 BP 112/70 Blood Pressure Location Lt brachial Position Sitting Pulse 74 Pulse Source Pulse Oximeter Temp 97.9 F Temp Source Temporal Artery Scan Pulse Oximetry (%) 100 Intake Visit Reasons: EP, Upper Abdominal Pain Intake Note: pt is here for upper abd pain, patient has been taking docusate and simethicone but no relief Patient Tobacco Use Status: Never used Tobacco Allergies No Known Allergies Allergy (Verified 09/24/22 09:52) HPI HPI Comments History of Present Illness Details This is a 27-year-old female who presents to the office today for sick visit. Patient complaining of epigastric abdominal pain x3 days. She reports associated nausea but denies any vomiting or diarrhea. She denies any ibuprofen/aspirin use. She denies any fevers or chills. She denies any chest pain or shortness of breath. She denies any melena or hematochezia. She denies dysuria, hematuria, urinary frequency, or urinary urgency. plan: Omeprazole, Maalox CBC, CMP, lipase PFSH Medical History Allergic rhinitis Carpal tunnel syndrome Constipation Dizziness Migraine No known health problems Obesity (BMI 30-39.9) Peripheral neuropathy Reactive airway disease Surgical History Mass of right side of neck No history of previous surgery Family History Mother No problems noted. Father No problems noted. Social History Housing: Apartment Alcohol intake: never Patient Tobacco Use Status: Never used Tobacco e-Cigarette/Vaping Use: Never Used Second Hand Smoke Exposure: No Substance Use Type: Marijuana service: No Current occupational status: unemployed Cognitive needs: No Hearing needs: No Vision needs: No Review of Systems Const All systems reviewed & are unremarkable except as noted in HPI and below Reports no additional complaints Eyes Reports no additional complaints ENT Reports no additional complaints Card Reports no additional complaints Resp Reports no additional complaints GI Reports no additional complaints and Reports abdominal pain Reports no additional complaints Musc Reports no additional complaints Skin/Breast Reports system reviewed and no additional complaints, except as documented Neuro Reports no additional complaints Psych Reports no additional complaints Endo Reports no additional complaints Willie/Lymph Reports no additional complaints Aller/Immun Reports no additional complaints Physical Exam Vital Signs: Last Vital Signs Temp 97.9 F 09/24/22 09:52 Pulse 74 09/24/22 09:52 BP 112/70 09/24/22 09:52 Pulse Ox 100 09/24/22 09:52 BMI result Body Mass Index 24.8 Const General: cooperative, healthy appearing, no acute distress and well developed Orientation/consciousness: patient oriented x3 HEENT Head: Yes normal to inspection Ears: hearing grossly normal bilaterally General nose exam: Normal external nose present Face and sinus: Yes normal facial exam Mouth: Normal oral and palatal mucosa present Eyes General: appearance normal, both eyes and all related structures Pupils: Equal, round and reactive pupils present EOM: EOMs intact bilaterally Resp Effort & Inspection: normal respiratory effort and no respiratory distress Auscultation: clear to auscultation bilaterally Cardio Rate: regular rate Rhythm: regular rhythm Heart sounds: no gallops, no murmurs and no rubs Peripheral pulses: Peripheral pulses 2+ throughout GI Inspection: No distended Palpation (GI): Soft to palpation and Tenderness to palpation present (GI) in the epigastrum and in the RUQ Auscultation: normal bowel sounds Skin General skin exam: no rashes or lesions noted Neuro General: patient oriented x3 Cranial nerves: Yes CN's II-XII intact bilaterally and Yes Equal, round and reactive pupils present Gait exam (Neuro): Normal gait present Motor exam (neuro): 5/5 motor strength present throughout Extrem General: Yes normal to inspection, Yes full ROM and Yes no clubbing, cyanosis or edema Psych Appearance: grossly normal Mental Status: mental status grossly normal Assessment & Plan Assessment & Plan (1) Epigastric abdominal pain: Code(s): R10.13 - Epigastric pain Plan: This is a 27-year-old female presented to the office complaining of epigastric abdominal pain x2 days. Differential diagnoses includes GERD versus acute pancreatitis versus acute cholecystitis. Patient sent home on Maalox as needed as well as omeprazole 40 mg daily. CBC, CMP, and lipase ordered. If there are any laboratory abnormalities, patient will proceed directly to the emergency room for further evaluation and management. Patient verbalizes her understanding and she is in agreement with the plan. Orders: Orders Comprehensive Met. Panel Today R10.13 - Epigastric pain Lipase Today R10.13 - Epigastric pain Complete Blood Count Auto Diff Today R10.13 - Epigastric pain Medications: New omeprazole 40 mg PO DAILY 30 caps 0RF alum-mag hydroxide-simeth 200-200-20 mg/5 mL 5 mL PO Q3H PRN 355 mL 0RF dyspepsia Coding Level of Care Code Est Pt Level 3 (69924) Diagnoses Epigastric abdominal pain R10.13
== END 2022-09-24 10:32 | disposition home or self-care (01) ==
PROVIDERS: PCP Internal Medicine; Visit Provider Physician Assistant Medical
DX: R10.13 Epigastric pain (principal)
CPT/HCPCS: 99213

== ENCOUNTER 2022-09-24 10:23 | Outpatient (REF) | payer OTHER, SELFPAY ==
[2022-09-24 13:16] LABS: MANUAL DIFF FLAG NO
[2022-09-24 13:30] LABS: Basophils Percent Auto 0.5 % (0-2); Eosinophils Absolute Auto 0.1 X10*3/uL (0.0-0.4); Eosinophils Percent Auto 1.8 % (0-4); Hematocrit 37.5 % (37.0-47.0); Hemoglobin 12.2 g/dl (12.0-16.0); Imm Gran Abs Auto 0.01 X10*3/uL (0.00-0.03); Imm Gran Pct Auto 0.2 % (0.0-0.4); Lymphocytes Absolute Auto 1.4 X10*3/uL (1.2-4.9); Lymphocytes Percent Auto 21.5 % (20-40); Mean Corpuscular HGB Conc 32.5 g/dl (31.0-35.0); Mean Corpuscular Hemoglobin 29.8 pg (27.0-33.0); Mean Corpuscular Volume 91.5 fL (80.0-98.0); Monocytes Absolute Auto 0.4 X10*3/uL (0.1-1.2); Neutrophils Absolute Auto 4.6 x10*3/uL (2.0-8.3); Platelet Count 254 X10*3/uL (160-400); Red Cell Distribution Width 13.3 % (11.0-16.0); White Blood Count 6.5 X10*3/uL (4.8-10.8)
[2022-09-24 13:53] LABS: Alanine Aminotransferase 9 U/L (0-31); Albumin Level 4.3 g/dL (3.5-5.0); Alkaline Phosphatase 54 U/L (39-117); Anion Gap 10 (12-20); Aspartate Amino Transferase 14 U/L (5-31); Bilirubin Total 0.3 mg/dL (0.0-1.0); Blood Urea Nitrogen 9 mg/dL (9-16); Calcium 9.9 mg/dL (8.4-10.2); Carbon Dioxide 27 mmol/L (22-29); Chloride 106 mmol/L (96-108); Estimated Glomerular Filt Rate > 60; Glucose Random 89 mg/dL (60-115); Lipase 20 U/L (8-78); Potassium 4.4 mmol/L (3.3-5.1); Sodium 139 mmol/L (135-145); Total Protein 7.4 g/dL (6.5-8.0)
[2022-09-24 14:08] LABS: TSH reflex Free T4 0.47 uIU/mL (0.32-4.0)
== END 2022-09-24 10:24 | disposition home or self-care (01) ==
LOC: HO.HMGCLDS 10:23
PROVIDERS: Nurse Practitioner Family; PCP Internal Medicine; Visit Provider Physician Assistant Medical
DX: Z13.0 Encounter for screening for diseases of the blood and blood-forming organs and certain disorders involving the immune mechanism (principal); Z13.29 Encounter for screening for other suspected endocrine disorder; R10.13 Epigastric pain
CPT/HCPCS: 36415; 80053; 83690; 84443; 85025

== ENCOUNTER 2022-11-21 17:51 | Emergency (ER) | payer OTHER, SELFPAY ==
[2022-11-21 18:21] VITALS: BP 126/83; PULSE 84; RESP 18; TEMP 36.8; O2SAT 100; BMI 22.1
--- NOTE | 2022-11-21 18:29 | ED_ITS ---
HPI - General Adult General Chief complaint: Headache Stated complaint: Migraine/Sore throat History of Present Illness HPI narrative: Left without competeing treatment by ED provider. Related Data Previous Rx's Medication Instructions Recorded fluticasone propionate 50 1 spray intranasal DAILY #100 mL 05/23/22 mcg/actuation nasal spray,suspension (Flonase Allergy Relief) docusate sodium 100 mg capsule 100 mg PO DAILY PRN constipation 09/14/22 (Colace) #30 caps simethicone 80 mg chewable tablet 80 mg PO TID-QID PRN abdominal 09/14/22 (Gas Relief 80 (simethicone)) distention #30 tabs aluminum-mag hydroxide-simethicone 5 ml PO Q3H PRN dyspepsia #355 mL 09/24/22 200 mg-200 mg-20 mg/5 mL oral susp omeprazole 40 mg capsule,delayed 40 mg PO DAILY #30 caps 09/24/22 release polyethylene glycol 3350 17 17 g PO DAILY PRN constipation 10/01/22 gram/dose oral powder (Miralax) #119 grams Allergies Allergy/AdvReac Type Severity Reaction Status Date / Time No Known Allergies Allergy Verified 09/24/22 09:52 [facility] Past Medical History Medical History Allergic rhinitis Carpal tunnel syndrome Constipation Dizziness Migraine No known health problems Obesity (BMI 30-39.9) Peripheral neuropathy Reactive airway disease Surgical History Mass of right side of neck No history of previous surgery Family History Family History Mother No problems noted. Father No problems noted. Social History Social History Housing: Apartment Alcohol intake: never Patient Tobacco Use Status: Never used Tobacco e-Cigarette/Vaping Use: Never Used Second Hand Smoke Exposure: No Substance Use Type: Marijuana Advance Directives: No Advance Directives Information Provided: No service: No Current occupational status: unemployed Cognitive needs: No Hearing needs: No Vision needs: No Physical Exam ED Vital Signs: Vital Signs - 24 hr 11/21/22 18:21 Temperature 98.3 F Pulse Rate 84 Respiratory Rate 18 Blood Pressure 126/83 Pulse Oximetry 100 Oxygen Delivery Method Room Air BMI result Body Mass Index 22.1 Course Course Course Narrative: RME: 27 yold female presents to the ED for migraine and sore throat. patient states no recent head trauma or neck stiffness. Neuro exam is intact. covid, influena, and strep rodered Medical Decision Making Lab Data Labs: Lab Results 11/21/22 Range/Units 18:32 COVID-19 (OLI) Negative (Negative) COVID-19 Clin Com See Note Influenza Type A (FRANCINE) Negative (Negative) Influenza Type B (FRANCINE) Negative (Negative) Influenza A & B Note See Note S. pyogenes GrpA FRANCINE Negative (Negative) Discharge Plan Discharge Clinical Impression: Migraine Patient Disposition: Left W/O Completing Treatment Prescriptions: No Action fluticasone propionate [Flonase Allergy Relief] 50 mcg/actuation spray,suspension 1 spray intranasal DAILY Qty: 100 0RF Rx Instructions: administer into each nostril polyethylene glycol 3350 [Miralax] 17 gram/dose powder 17 g PO DAILY PRN (Reason: constipation) Qty: 119 0RF simethicone [Gas Relief 80 (simethicone)] 80 mg tablet,chewable 80 mg PO TID-QID PRN (Reason: abdominal distention) Qty: 30 0RF docusate sodium [Colace] 100 mg capsule 100 mg PO DAILY PRN (Reason: constipation) Qty: 30 0RF omeprazole 40 mg capsule,delayed release(DR/EC) 40 mg PO DAILY Qty: 30 0RF alum-mag hydroxide-simeth 200-200-20 mg/5 mL suspension 5 ml PO Q3H PRN (Reason: dyspepsia) Qty: 355 0RF Discharge Date/Time: 11/21/22 23:01
[2022-11-21 18:49] LABS: IDNOW Serial# 08D9AD1C; Strep A Nucleic Acid Negative (Negative)
[2022-11-21 18:55] LABS: COVID-19 Test Negative (Negative); IDNOW Serial# 6674DD1D; IDNOW Serial# BCCEAD1C
[2022-11-21 18:56] LABS: Influenza A Negative (Negative); Influenza B2 Negative (Negative)
== END 2022-11-21 23:01 | disposition left against medical advice (07) ==
PROVIDERS: Physician Assistant; Emergency Provider Emergency Medicine; PCP Internal Medicine
DX: G43.909 Migraine, unspecified, not intractable, without status migrainosus (principal); Z11.52 Encounter for screening for COVID-19; Z20.822 Contact with and (suspected) exposure to COVID-19
CPT/HCPCS: 87502; 87635; 87651; 99281; 99283

== ENCOUNTER 2022-12-09 13:50 | Outpatient (AMB) | payer OTHER, SELFPAY ==
[2022-12-09 13:52] VITALS: BP 102/64; PULSE 73; O2SAT 100; BMI 24.3
--- NOTE | 2022-12-09 13:52 | MHC.PC.OV ---
Vital Signs 12/09/22 13:52 Height 5 ft 5 in Weight 146 lb BMI 24.3 BP 102/64 Blood Pressure Location Lt brachial Position Sitting Pulse 73 Pulse Source Pulse Oximeter Pulse Oximetry (%) 100 Oxygen Delivery Method Room Air Intake Visit Reasons: Physical exam Intake Note: Patient is here today for a physical. 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 Required: No Allergies No Known Allergies Allergy (Verified 12/09/22 14:04) Medication List - Last Reconciled 12/09/22 by MALENA Stallings alum-mag hydroxide-simeth 200-200-20 mg/5 mL 5 mL PO Q3H PRN docusate sodium (Colace) 100 mg PO DAILY PRN fluticasone propionate 50 mcg/actuation (Flonase Allergy Relief) 1 spray intranasal DAILY omeprazole 40 mg PO DAILY polyethylene glycol 3350 (Miralax) 17 grams PO DAILY PRN simethicone (Gas Relief 80 (simethicone)) 80 mg PO TID-QID PRN Tobacco use date assessed: 12/09/22 Dental Screening Dental Screen Date: 12/09/22 Did you have a dental visit in the last 12 months?: Yes Did you have a dental problem in the last 6 months where you did not have access to dental care?: No Was dental information given to patient?: Patient has dentist HPI Physical exam HPI Details Patient is a 27-year-old female who presents today for physical exam. Patient of Dr. Newman. Medical history significant for mass of right side of neck-reports intermittent pain there for the past 1 year-was seen by General surgery in the past - will refer for an evaluation, migraine-stable with [id number] Excedrin, postnasal drip. Today we discussed patient's need for cervical cancer screening. Patient also reports maternal grandmother with history of breast cancer-interested in genetic testing. No shortness of breath or chest pain. Would like to hold off on tetanus vaccine. Eye and dental exams up-to-date. 08/2022 US/US soft tiss head and/or neck IMPRESSION: Palpable area indicated by the patient in the right posterior neck likely represents a benign lymph node. Follow-up in 3-6 months should be considered. If the palpable area increases in size, further evaluation should be considered. Alternatively, CT scan could be obtained. [facility] Medical History Abdominal bloating Irritation of oral cavity Conjunctivitis Rash Migraine Dizziness Constipation Allergic rhinitis Reactive airway disease Carpal tunnel syndrome Peripheral neuropathy Obesity (BMI 30-39.9) No known health problems Surgical History Mass of right side of neck No history of previous surgery Family History Mother No problems noted. Father No problems noted. Social History Housing: Apartment Alcohol intake: never Patient Tobacco Use Status: Never used Tobacco e-Cigarette/Vaping Use: Never Used Second Hand Smoke Exposure: No Substance Use Type: Marijuana service: No Current occupational status: unemployed Cognitive needs: No Hearing needs: No Vision needs: No Questionnaire PHQ-9 Over the last 2 weeks, how often have you been bothered by any of the following problems? 1. Little interest or pleasure in doing things: not at all 2. Feeling down, depressed, or hopeless: not at all 3. Trouble falling or staying asleep, or sleeping too much: not at all 4. Feeling tired or having little energy: not at all 5. Poor appetite or overeating: not at all 6. Feeling bad about yourself - or that you are a failure or have let yourself or your family down: not at all 7. Trouble concentrating on things, such as reading the newspaper or watching television: not at all 8. Moving or speaking so slowly that other people could have noticed. Or the opposite - being so fidgety or restless that you have been moving around a lot more than usual: not at all 9. Thoughts that you would be better off or of hurting yourself in some way: not at all Total score: 0 Depression Screening Interpretation: Negative Depression Screening Done: Yes 21983 - PHQ-9 Billing: Yes Source: Developed by Drs. Darshan Ortiz, Rachel Telles, Manuel Lawson and colleagues, with an educational danilo from [employer]. Thrive Questionnaire Date Thrive assessed: 02/25/22 AUDIT C Alcohol Use Questionnaire (AUDIT-C) 1. How often do you have a drink containing alcohol?: Never 2. How many drinks containing alcohol do you have on a typical day when you are drinking?: 1 or 2 (none) 3. How often do you have six or more drinks on one occasion?: Never Total Score: 0 Score Reviewed/Action Taken: No LETA-7 AMB Questionnaire LETA-7 Date LETA - 7 assessed: 12/09/22 Feeling nervous, anxious, or on edge: 0 = Not at all Not being able to stop or control worryin = Not at all Worrying too much about different things: 0 = Not at all Trouble relaxin = Not at all Being so restless that it is hard to sit still: 0 = Not at all Becoming easily annoyed or irritable: 0 = Not at all Feeling afraid as if something awful might happen: 0 = Not at all Total LETA-7 score (0-4 normal; 5-9 mild; 10-14 moderate; 15-21 severe): 0 Source: Developed by Drs. Darshan Ortiz, Rachel Telles, Manuel Lawson and colleagues, with an educational danilo from [employer]. LETA-7 Assessment Billing LETA-7 Assessment Tool: LETA-7 Assessment 00557 Review of Systems Const Denies body aches, Denies chills, Denies fever(s) and Denies headache(s) Eyes Denies change in vision ENT Denies dizziness, Denies otalgia, Denies headache(s), Denies nasal discharge, Denies sinus pain and Denies sore throat Card Denies chest pain, Denies edema, Denies lightheadedness and Denies dyspnea Resp Denies cough, Denies dyspnea and Denies wheezing GI Denies abdominal pain, Reports constipation (Intermittent), Denies diarrhea, Denies nausea and Denies vomiting Denies dysuria Musc Denies myalgias Skin/Breast Reports as per HPI and Denies rash Neuro Denies dizziness and Denies headache(s) Aller/Immun Denies wheezing Physical exam (Primary Care) Vital Signs: Last Vital Signs Pulse 73 12/09/22 13:52 BP 102/64 12/09/22 13:52 Pulse Ox 100 12/09/22 13:52 Oxygen Delivery Method Room Air 12/09/22 13:52 BMI result Body Mass Index 24.3 Tobacco/Smoking Status: Tobacco use Status Tobacco use date assessed 12/09/22 12/09/22 13:53 Patient Tobacco Use Status Never used Tobacco 12/09/22 13:53 e-Cigarette/Vaping Use Never Used 12/09/22 13:53 PHQ-9: PHQ-9 Score PHQ-9: Total score 0 12/09/22 13:53 Depression Screening Interpretation: Negative Thrive Assessment: Date of Thrive Assessment Date Thrive assessed 02/25/22 12/09/22 13:53 Const General: cooperative and no acute distress Orientation/consciousness: patient oriented x3 HENMT Head: Yes normocephalic and Yes atraumatic Ears: TM's normal bilaterally Face and sinus: Yes sinuses nontender Mouth: oropharynx normal and moist mucous membranes Throat: Yes posterior oropharynx normal Eyes General: appearance normal, both eyes and all related structures Pupils: Equal, round and reactive pupils present EOM: EOMs intact bilaterally Neck Neck: Yes normal visual inspection, Yes full ROM and Yes no lymphadenopathy Thyroid: Thyroid normal Resp Effort & Inspection: normal respiratory effort and able to speak in complete sentences Auscultation: clear to auscultation bilaterally, no crackles, no rales, no rhonchi and no wheezes Cardio Rate: regular rate Rhythm: regular rhythm Heart sounds: S1 normal heart sound present, S2 normal heart sound present and no murmurs GI Palpation (GI): Soft to palpation, not firm, nontender, no guarding, not rigid and no hepatosplenomegaly Auscultation: normal bowel sounds General: No CVA tenderness Back/Spine/Pelvis Back: No CVA tenderness Skin Other: Right posterior neck with nontender hard to palpation lump about 5mm, skin is intact Neuro General: patient oriented x3 Cranial nerves: Yes Equal, round and reactive pupils present Gait exam (Neuro): Normal gait present Extrem General: Yes full ROM and No edema Assessment and Plan Assessment & Plan (1) Family history of breast cancer in female: Code(s): Z80.3 - Family history of malignant neoplasm of breast Plan: Referral for genetic testing (2) Cervical cancer screening: Code(s): Z12.4 - Encounter for screening for malignant neoplasm of cervix (3) Constipation: Code(s): K59.00 - Constipation, unspecified Plan: Stable with current treatments Increase dietary fiber and fluid consumption (4) Postnasal drip: Code(s): R09.82 - Postnasal drip Plan: Patient uses Flonase nasal spray p.r.n. (5) Migraine: Code(s): G43.909 - Migraine, unspecified, not intractable, without status migrainosus Plan: Stable with [id number] Excedrin (6) Mass of right side of neck: Comment: small pea sized firm lump right neck bellow occiput area. Code(s): R22.1 - Localized swelling, mass and lump, neck Plan: General surgery referral for an evaluation and treatment (7) Adult general medical exam: Code(s): Z00.00 - Encounter for general adult medical examination without abnormal findings Orders: Referrals RELATIONSHIP COUNSELOR Referral Z12.4 - Encounter for screening for malignant neoplasm of cervix General Surgery Referral R22.1 - Localized swelling, mass and lump, neck, Z80.3 - Family history of malignant neoplasm of breast Medications: Discontinued omeprazole Discontinued Reason: Patient no longer taking 40 mg PO DAILY 30 caps 0RF Coding Level of Care Code Est Pt Prev Care 18-39y(91580) Diagnoses Family history of breast cancer in female Z80.3 Cervical cancer screening Z12.4 Constipation K59.00 Postnasal drip R09.82 Migraine G43.909 Mass of right side of neck R22.1 Adult general medical exam Z00.00 Additional Codes LETA-7 Assessment Billing - LETA-7 Assessment Tool: LETA-7 Assessment 34770 ([id number])
== END 2022-12-09 14:24 | disposition home or self-care (01) ==
PROVIDERS: PCP Internal Medicine; Visit Provider Nurse Practitioner Family
DX: Z80.3 Family history of malignant neoplasm of breast (principal); Z12.4 Encounter for screening for malignant neoplasm of cervix; K59.00 Constipation, unspecified; R09.82 Postnasal drip; G43.909 Migraine, unspecified, not intractable, without status migrainosus; R22.1 Localized swelling, mass and lump, neck; Z00.00 Encounter for general adult medical examination without abnormal findings
CPT/HCPCS: 99395

== ENCOUNTER 2023-03-23 08:46 | Outpatient (AMB) | payer OTHER, SELFPAY ==
--- NOTE | 2023-03-23 09:45 | AM.OFFWIN_ITS ---
Intake Vital Signs 03/23/23 09:46 Height 5 ft 5 in Weight 153 lb BMI 25.5 BP 110/72 Blood Pressure Location Lt brachial Position Sitting Pulse 64 Pulse Source Pulse Oximeter Temp 98.5 F Temp Source Temporal Artery Scan Pulse Oximetry (%) 99 Oxygen Delivery Method Room Air Intake Visit Reasons: EST/right knee pain (lobby) Intake Note: pt is here today for rt knee pain started 3 weeks ago Patient Tobacco Use Status: Never used Tobacco Allergies No Known Allergies Allergy (Verified 03/23/23 10:07) Medication List - Last Reconciled 03/23/23 by Duncan Hutton MD No Known Home Meds Do you need a note to return to daycare/school/sports/work: Yes HPI EST/right knee pain (lobby) HPI Details 28-year-old female presents to the [facility] for a sick visit. Patient is complaining of pain in the right knee for the past 3 weeks. Does not recall any fall or injury prior to the onset of symptoms. Patient reports her job in [employer] long hours of standing. [facility] Medical History Abdominal bloating Irritation of oral cavity Conjunctivitis Rash Migraine Dizziness Constipation Allergic rhinitis Reactive airway disease Carpal tunnel syndrome Peripheral neuropathy Obesity (BMI 30-39.9) No known health problems Surgical History Mass of right side of neck No history of previous surgery Family History Mother No problems noted. Father No problems noted. Social History Housing: Apartment Alcohol intake: never Patient Tobacco Use Status: Never used Tobacco e-Cigarette/Vaping Use: Never Used Second Hand Smoke Exposure: No Substance Use Type: Marijuana service: No Current occupational status: unemployed Cognitive needs: No Hearing needs: No Vision needs: No Physical Exam Vital Signs: Last Vital Signs Temp 98.5 F 03/23/23 09:46 Pulse 64 03/23/23 09:46 BP 110/72 03/23/23 09:46 Pulse Ox 99 03/23/23 09:46 Oxygen Delivery Method Room Air 03/23/23 09:46 BMI result Body Mass Index 25.5 Extrem Other: Right knee: Joint line tenderness along the medial side. Range of motion: Flexion and extension elicits no pain. Assessment & Plan Assessment & Plan (1) Sprain of right knee: Code(s): S83.91XA - Sprain of unspecified site of right knee, initial encounter Plan: X-ray images were personally reviewed by me. No fractures or effusions seen. Knee splint provided. Anti-inflammatory called in. Symptoms do not improve to follow-up here. Orders: Orders XR knee RT 3V Today S83.91XA - Sprain of unspecified site of right knee, initial encounter Coding Level of Care Code Est Pt Level 4 (47002) Diagnoses Sprain of right knee S83.91XA
[2023-03-23 09:46] VITALS: BP 110/72; PULSE 64; TEMP 36.9; O2SAT 99; BMI 25.5
== END 2023-03-23 10:56 | disposition home or self-care (01) ==
PROVIDERS: PCP Internal Medicine; Visit Provider Internal Medicine
DX: S83.91XA Sprain of unspecified site of right knee, initial encounter (principal)
CPT/HCPCS: 99214

== ENCOUNTER 2023-03-23 10:08 | Outpatient (REF) | payer OTHER, SELFPAY ==
--- NOTE | ~2023-03-23 | XR_ITS ---
EXAMINATION: XR KNEE, RIGHT CLINICAL INFORMATION: Sprain COMPARISON: None available. TECHNIQUE: 3 views frontal lateral and tunnel view of the right knee. FINDINGS: No fracture or joint effusion. Alignment is anatomic. Joint spaces are maintained. No abnormal soft tissue calcification. XR/XR knee RT 3V IMPRESSION: No fracture or dislocation.
== END 2023-03-23 10:09 | disposition home or self-care (01) ==
LOC: HO.HMGCX 10:08
PROVIDERS: PCP Internal Medicine; Visit Provider Internal Medicine
DX: S83.91XA Sprain of unspecified site of right knee, initial encounter (principal); X58.XXXA Exposure to other specified factors, initial encounter; Y93.9 Activity, unspecified; Y92.9 Unspecified place or not applicable; Y99.9 Unspecified external cause status
CPT/HCPCS: 73562

== ENCOUNTER 2024-07-16 09:39 | Outpatient (AMB) | payer OTHER, SELFPAY ==
[2024-07-16 09:40] VITALS: BP 112/60; PULSE 85; TEMP 36.3; O2SAT 97; BMI 24.8
--- NOTE | 2024-07-16 09:40 | MHC.PC.OV ---
Vital Signs 07/16/24 09:40 Height 5 ft 5 in Weight 149 lb BMI 24.8 BP 112/60 Blood Pressure Location Lt brachial Position Sitting Pulse 85 Pulse Source Pulse Oximeter Temp 97.3 F Temp Source Temporal Artery Scan Pulse Oximetry (%) 97 Oxygen Delivery Method Room Air Intake Visit Reasons: spots on face/referral Allergies No Known Allergies Allergy (Verified 07/16/24 09:42) Tobacco use date assessed: 07/16/24 Dental Screening Dental Screen Date: 07/16/24 Did you have a dental visit in the last 12 months?: Yes Did you have a dental problem in the last 6 months where you did not have access to dental care?: No Was dental information given to patient?: Patient has dentist HPI spots on face/referral HPI Details complains of acne last year drinking energy drinks but since 5 months stopped and now still having acne- using differin gel [facility] Medical History Abdominal bloating Irritation of oral cavity Conjunctivitis Rash Migraine Dizziness Constipation Allergic rhinitis Reactive airway disease Carpal tunnel syndrome Peripheral neuropathy Obesity (BMI 30-39.9) No known health problems Surgical History Mass of right side of neck No history of previous surgery Family History Mother No problems noted. Father No problems noted. Social History Housing: Apartment Alcohol intake: never Patient Tobacco Use Status: Never used Tobacco e-Cigarette/Vaping Use: Never Used Second Hand Smoke Exposure: No Substance Use Type: Marijuana service: No Current occupational status: unemployed Cognitive needs: No Hearing needs: No Vision needs: No Questionnaire PHQ-9 Over the last 2 weeks, how often have you been bothered by any of the following problems? 1. Little interest or pleasure in doing things: not at all 2. Feeling down, depressed, or hopeless: not at all 3. Trouble falling or staying asleep, or sleeping too much: not at all 4. Feeling tired or having little energy: not at all 5. Poor appetite or overeating: not at all 6. Feeling bad about yourself - or that you are a failure or have let yourself or your family down: not at all 7. Trouble concentrating on things, such as reading the newspaper or watching television: not at all 8. Moving or speaking so slowly that other people could have noticed. Or the opposite - being so fidgety or restless that you have been moving around a lot more than usual: not at all 9. Thoughts that you would be better off or of hurting yourself in some way: not at all Total score: 0 Depression Screening Interpretation: Negative Depression Screening Done: Yes 20933 - PHQ-9 Billing: Yes Source: Developed by Drs. Darshan Ortiz, Rachel Telles, Manuel Lawson and colleagues, with an educational danilo from [employer]. Thrive Questionnaire Date Thrive assessed: 07/16/24 I am a: Patient What is your living situation today?: I have a steady place to live Within the past 12 months, did the food you bought not last and you didn't have the money to get more?: Never true Within the past 12 months, did you worry whether your food would run out before you got money to buy more?: Never true Do you have trouble paying for medicines?: No Do you have trouble getting transportation to medical appointments?: No Do you have trouble paying your heating and electricity bill?: No Do you have trouble taking care of your child, family member or friend?: No Do you have trouble with day-to-day activities such as bathing, preparing meals, shopping, managing finances, etc.?: No Are you currently unemployed and looking for a job?: Yes Are you interested in more education?: No Please select the resources that you would like help with: None Currently or been in a relationship where the following occur: I choose not to answer THRIVE Score: 0 AUDIT C Alcohol Use Questionnaire (AUDIT-C) 1. How often do you have a drink containing alcohol?: Never 3. How often do you have six or more drinks on one occasion?: Never Total Score: 0 LETA-7 AMB Questionnaire LETA-7 Date LETA - 7 assessed: 07/16/24 Feeling nervous, anxious, or on edge: 0 = Not at all Not being able to stop or control worryin = Not at all Worrying too much about different things: 0 = Not at all Trouble relaxin = Not at all Being so restless that it is hard to sit still: 0 = Not at all Becoming easily annoyed or irritable: 0 = Not at all Feeling afraid as if something awful might happen: 0 = Not at all Total LETA-7 score (0-4 normal; 5-9 mild; 10-14 moderate; 15-21 severe): 0 Source: Developed by Drs. Darshan Ortiz, Rachel eTlles, Manuel Lawson and colleagues, with an educational danilo from [employer]. LETA-7 Assessment Billing LETA-7 Assessment Tool: LETA-7 Assessment 65174 Physical exam (Primary Care) Vital Signs: Last Vital Signs Temp 97.3 F 07/16/24 09:40 Pulse 85 07/16/24 09:40 BP 112/60 07/16/24 09:40 Pulse Ox 97 07/16/24 09:40 Oxygen Delivery Method Room Air 07/16/24 09:40 BMI result Body Mass Index 24.8 Tobacco/Smoking Status: Tobacco use Status Tobacco use date assessed 07/16/24 07/16/24 09:43 Patient Tobacco Use Status Never used Tobacco 07/16/24 09:43 e-Cigarette/Vaping Use Never Used 07/16/24 09:43 PHQ-9: PHQ-9 Score PHQ-9: Total score 0 07/16/24 09:43 Depression Screening Interpretation: Negative Thrive Assessment: Date of Thrive Assessment Date Thrive assessed 07/16/24 07/16/24 09:43 Currently or been in a relationship where the following occur: I choose not to answer HENMT Other: Multiple yellowish tip papular rash on the chin area as well as on the forehead with multiple 1 mm hyper pigmented rash also Coding Level of Care Code Est Pt Level 3 (24193) Diagnoses Acne comedone L70.0 Additional Codes LETA-7 Assessment Billing - LETA-7 Assessment Tool: LETA-7 Assessment 29575 ([id number]) PHQ-9 - 15588 - PHQ-9 Billing: Yes ([id number]) Assessment & Plan Assessment & Plan (1) Acne comedone: Code(s): L70.0 - Acne vulgaris Category: Medical Plan History of Present Illness The patient is a 29-year-old female presenting with acne. She began experiencing acne after initiating a fitness routine and consuming energy drinks over a year ago. Although cessation of energy drinks several months ago resulted in some improvement, acne lesions persist. Treatment has included the use of Differin gel and benzoyl peroxide cream, with some symptom relief reported. Pruritus associated with the lesions was also noted. The patient denies any familial history of similar skin issues. Health Maintenance Social History - Exercise: The patient began a gym regimen over a year ago. - Dietary habits: Previously consumed energy drinks, discontinued three to four months ago. Reports eating healthily and avoiding fast food. - Hydration: Consumes a substantial amount of water daily. Review of Systems - Skin: Reports acne and pruritus. Denies family history of acne. Physical Exam Results - Labs: Normal blood count, normal electrolytes, normal renal function, normal blood sugar, normal liver function, and normal thyroid function as per 2022 blood work. Plan The patient is advised to continue the use of Differin gel and benzoyl peroxide cream in the management of acne vulgaris, beginning with nightly applications. A referral to a structures engineer at [facility] is initiated to allow for specialist evaluation and management should the acne persist. We discussed the importance of patch testing for new treatments. Maintaining proper hydration and a healthy diet was also advised to support her skin condition. Patient was informed and verbally consented to the use of an ambient scribe for clinic note documentation during this visit. Discussion Notes I discussed with the patient her current use of Differin gel and benzoyl peroxide for acne management. I explained the benefit of using these treatments and informed her about the referral to [facility] for further management, noting that scheduling may take time. I recommended patch testing new products before full application. We also covered general health practices like maintaining good hydration and dietary habits, particularly avoidance of energy drinks, which she reported had aggravated her acne. Patient Instructions - Continue using Differin gel and benzoyl peroxide cream every night. - Try to obtain benzoyl peroxide cream from another store if unavailable. - Follow the referral process for dermatology to [facility]. - Ensure proper hydration by drinking plenty of water. - Maintain a healthy diet, avoiding high-calorie energy drinks. Orders: Referrals Dermatology Referral L70.0 - Acne vulgaris Medications: New benzoyl peroxide 2.5% 1 appl topical DAILY 227 grams 1RF L70.0 - Acne vulgaris
--- OUTSIDE RECORDS SUMMARY | 2024-07-16 10:18 | XMS_ITS | Data Portability ---
Author Organization KRISTINE Bowers s, [address] Address [address] [place] [address] Assessment No assessment recorded. Plan of Treatment Reminders Order Date Submit Date Provider Last Modified By Organization Details Last Modified Time Details Appointments None recorded. Lab None recorded. Referral None recorded. Procedures None recorded. Surgeries None recorded. Imaging None recorded. Medication Orders triamcinolo ne acetonide 0.1 % dental paste 2022 023 JENNY [id number], [address] [place], [address], 20:02:04 hydroxyzine HCl 25 mg tablet 2022 023 [email or web address] [id number], [address] [place], [address], 22:28:16 nystatin 100,000 unit/mL oral suspension 2022 023 [email or web address] [id number], [address] [place], [address], 19:32:53 Patient TargetsNo targets recorded. Patient Instructions Encounter Date Encounter Id Patient Instructions Last Modified By Organization Details Last Modified Time 02/22/2022 [id number] Patients should be advised to change their toothpaste to a sodium lauryl sulfate (SLS)-free formulation. An increased frequency of recurrent aphthous stomatitis (SYBIL) related to SLS-containing dentifrice has been reported, although other studies found no such association. However, because SLS-dentifrices are in widespread use, it seems unlikely that this agent truly predisposes to, or causes, most SYBIL. Patients should also be instructed to avoid recognized trigger foods, and acidic foods and drinks. There is some evidence of benefit from vitamin B12, even in the absence of any deficiency; supplementation with oral vitamin B12 (cyanocobalamin) has been shown to be effective in studies, irrespective of serum B12 levels. Adjunctive antimicrobial agents may also be of some value, in part by reducing secondary infection. These may reduce the severity and pain of ulceration. [ [email or web address] Not available 02/22/2022 19:22:21 03/12/2022 [id number] Discuss this symptoms with the dentist that you are going to see. I do not see anything abnormal but the itching might indicate something deeper. Not available 03/12/2022 20:01:59 Reason for Referral None Reported. Problems No Known Problems Procedures Surgical History Date Name Laterality Status Provider Name and Address Organization Details Recorded Time Oral surgery procedure completed GARETT CONDE [place] - [facility] 02/22/2022 19:05:52 Imaging Results None recorded. Procedure Notes None recorded. Medical Equipment None Reported. Allergies No known drug allergies Medications Name Sig Start Date Stop Date Status Note LastModified by Organization Details LastModified Time amoxicillin 500 mg capsule TAKE 1 CAPSULE BY MOUTH EVERY 8 HOURS FOR 7 DAYS 02/22 completed Not Available Not Available Not Available nystatin 100,000 unit/mL oral suspension TAKE 5 ML 4 TIMES A DAY BY ORAL ROUTE NEEDED FOR 7 DAYS. 03/12 completed Not Available Not Available Not Available ibuprofen 800 mg tablet TAKE 1 TABLET BY MOUTH EVERY 8 HOURS FOR 5 DAYS 02/22 completed Not Available Not Available Not Available Lidocaine Viscous 2 % mucosal solution SWISH AND SPIT OUT 4 TIMES DAILY NEEDED FOR PAIN FOR 14 DAYS 03/12 completed Not Available Not Available Not Available sumatriptan 25 mg tablet PLEASE SEE ATTACHED FOR DETAILED DIRECTION S 02/22 completed Not Available Not Available Not Available prednisone 20 mg tablet TAKE 1 TABLET BY MOUTH EVERY DAY FOR 7 DAYS 02/22 completed Not Available Not Available Not Available tramadol 50 mg tablet TAKE 1 TABLET ORALLY EVERY 6 HOURS NEEDED FOR PAIN 02/22 completed Not Available Not Available Not Available triamcinolo ne acetonide 0.1 % dental paste Take 1 applicati on 3 times a day by dental route. active Not Available Not Available No t Available meclizine 25 mg tablet TAKE 1 TABLET BY MOUTH TWICE A DAY NEEDED FOR DIZZINESS 02/22 completed Not Available Not Available Not Available amoxicillin 250 mg capsule TAKE 1 CAPSULE BY MOUTH EVERY 8 HOURS FOR 7 DAYS 02/22 completed Not Available Not Available Not Available hydroxyzine HCl 25 mg tablet Take 1 tablet every 6 hours by oral route. active Not Available Not Available No t Available ibuprofen 600 mg tablet TAKE 1 TABLET BY MOUTH EVERY 6 HOURS NEEDED FOR PAIN 02/22 completed Not Available Not Available Not Available fluticasone propionate 50 mcg/actuati on nasal spray,suspe nsion SPRAY 1 SPRAY INTO EACH NOSTRIL DAILY 03/12 completed Not Available Not Available Not Available amoxicillin 875 mg-potassiu m clavulanate 125 mg tablet TAKE 1 TABLET BY MOUTH TWICE A DAY 02/22 completed Not Available Not Available Not Available Vitals Date Recorded Body height Body mass index (BMI) Body weight Body temperature Oxygen saturation Oxygen saturation in Arterial blood by Pulse oximetry Heart rate Respiratory rate Systolic blood pressure Diastolic blood pressure Provider Name and Address Organization Details Last Updated DateTime 3 165.1 cm 25 kg/m2 28917.8 6 g 97.1 [degF] 100 % 100 % 83 /min 14 /min 100 mm[Hg] 68 mm[Hg] GAERTT CONDE [place] [facility] 3 19:07:52 Date Recorded Body height Body mass index (BMI) Body weight Body temperature Respiratory rate Oxygen saturation Oxygen saturation in Arterial blood by Pulse oximetry Heart rate Systolic blood pressure Diastolic blood pressure Provider Name and Address Organization Details Last Updated DateTime 3 165.1 cm 25 kg/m2 95602.8 6 g 97.8 [degF] 18 /min 96 % 96 % 98 /min 113 mm[Hg] 67 mm[Hg] JUAN CASEY [place] [facility] 3 19:34:33 Social History Question Answer Notes LastModified by Organizat ion Details LastModified Time Tobacco Smoking Status Never Smoker G[place]ETT park [place] - [facility] 02/22/2022 19:05:34 Have You Recently Traveled Abroad? No [email or web address] Information not available 02/22/2022 Are You Currently In School? No Information not available 03/12/2022 Sex: Unknown Functional Status Question Answer Note LastModified by Organizat ion Details LastModified Time Do you use any illicit or recreational drugs? No [email or web address] Information not available 02/22/2022 Do you or have you ever used any other forms of tobacco or nicotine? No [email or web address] Information not available 02/22/2022 What is your level of alcohol consumption? None [email or web address] Information not available 02/22/2022 Are you currently employed? Yes Information not available 03/12/2022 Mental Status None recorded. Family History Relationship Description Onset Age of this Age Resolved Age Notes LastModified by Organization Details LastModified Time Father No current problems or disability [email or web address] Not available 02/22 19:05:20 Mother No current problems or disability [email or web address] Not available 02/22 19:05:20 Medical History No medical history recorded. Gynecological History Statement/Question Response Date of LMP 01/21/2022 Obstetrics History GPAL:G 0 P 0 0 0 0 Past Encounters Encounter ID Performer Location Encounter Start Date Encounter Closed Date Diagnosis/Indication Diagnosis SNOMED-CT Code Diagnosis ICD10 Code Diagnosis Note [id number] [address] [place] [address] 09/21/2019 19:00:57 09/21/2019 19:35:39 [id number] [address] [place] [address] 08/29/2019 13:48:30 08/29/2019 14:07:28 [id number] [place] [address] 09/21/2019 16:03:26 09/21/2019 17:25:50 [id number] Mauro Omer [place] [address] [place] [address] 02/22/2022 18:39:13 02/22/2022 19:26:23 Candidiasis of mouth 01592681 B37.0 [id number] KRISTINE BARBER [address] [place] [address] 03/12/2022 18:03:31 03/12/2022 20:02:40 Pain in palate 622057736 K13.79 Health Concerns Section Related Observation LastModified by Organization Detai ls LastModified Time None Recorded Concern Status LastModified by Organization Details LastModified Time None Recorded Advance Directives Directive None Recorded Payers Insurance Date Sequence Insurance Name Policy Number Policy Hazel Covered Member ID Hazel Member ID Guarantor Name 03/12/2022 1 [facility] [place]MEDICAID HMO) BUSTER Samson [id number] Doyel Samson Notes Date Note Type Note Provider Name and Address Organization Details Recorded Time 02/22/2022 text/html felt like denude d area roof of mouth and dry mouth at times. No pain x 2 weeks. Mauro Omer NP [address] [place], [address], [place] - [facility] 02/22/2022 19:23:49 03/12/2022 text/html Facial ProblemReported bypatient.Notes:The patient reports itching on the roof of the mouth. The patient has been seen several time for this complaint. She has been to the ER, here, and her PCP. She states that everyone states that there is nothing there, but it is driving her crazy. She states that she feels like there are some bumps. felt like denuded area roof of mouth and dry mouth at times. No pain x 2 weeks. KRISTINE BARBER [address] [place], [address], [place] - [facility] 03/12/2022 22:32:16 OBGyn Episode No OBEpisode recorded.
== END 2024-07-16 09:56 | disposition home or self-care (01) ==
LOC: HO.HMCH 09:40
PROVIDERS: PCP Internal Medicine; Visit Provider Internal Medicine
DX: L70.0 Acne vulgaris (principal)

== ENCOUNTER → 2024-07-16 09:39 | Outpatient (BNVA) | payer OTHER, SELFPAY | PROVIDERS: PCP Internal Medicine; Visit Provider Internal Medicine | DX: L70.0 Acne vulgaris (principal); Z13.31 Encounter for screening for depression; Z13.30 Encounter for screening examination for mental health and behavioral disorders, unspecified | CPT/HCPCS: 96127; 99212 ==